=== PATIENT | female | born 1995 | race Caucasian/White ===

== ENCOUNTER 2017-01-11 17:16 | Emergency (ER) | payer MEDICAID ==
[2017-01-11] MEDS ORDERED: ACETAMINOPHEN 325 MG TABLET PO STA (17:50)
[2017-01-11] MEDS ORDERED: IBUPROFEN 400 MG TABLET PO STA (17:50)
[2017-01-11] MEDS ORDERED: IBUPROFEN 400 MG TABLET PO ONE (17:54)
[2017-01-11] MEDS ORDERED: ACETAMINOPHEN 325 MG TABLET PO ONE (17:54)
== END 2017-01-11 18:20 | disposition home or self-care (01) ==
DX: Z30.432 Encounter for removal of intrauterine contraceptive device (principal); F17.200 Nicotine dependence, unspecified, uncomplicated
CPT/HCPCS: 81001; 81025; 99282; 99283; A9270

== ENCOUNTER 2017-03-02 18:18 | Emergency (ER) | payer MEDICAID ==
[2017-03-02] MEDS ORDERED: LORazepam 0.5 MG TABLET PO STA (19:59)
[2017-03-02] MEDS ORDERED: LORazepam 0.5 MG TABLET ONE (20:02)
== END 2017-03-02 20:11 | disposition home or self-care (01) ==
DX: F34.81 Disruptive mood dysregulation disorder (principal); F33.2 Major depressive disorder, recurrent severe without psychotic features; F17.200 Nicotine dependence, unspecified, uncomplicated
CPT/HCPCS: 99283; A9270

== ENCOUNTER 2017-03-03 08:54 | Emergency (ER) | payer MEDICAID | END 2017-03-03 14:33 | disposition home or self-care (01) | DX: F41.9 Anxiety disorder, unspecified (principal); F32.9 Major depressive disorder, single episode, unspecified; F90.9 Attention-deficit hyperactivity disorder, unspecified type; F17.200 Nicotine dependence, unspecified, uncomplicated ==

== ENCOUNTER 2017-03-22 10:51 | Outpatient (CLI) | payer MEDICAID | END 2017-03-22 10:52 | disposition critical access hospital (66) | DX: R45.851 Suicidal ideations (principal) | CPT/HCPCS: A0425; A0429 ==

== ENCOUNTER 2017-03-22 11:07 | Emergency (ER) | payer MEDICAID | END 2017-03-22 13:42 | disposition home or self-care (01) | DX: F98.8 Other specified behavioral and emotional disorders with onset usually occurring in childhood and adolescence (principal); F32.9 Major depressive disorder, single episode, unspecified; R45.851 Suicidal ideations; F17.200 Nicotine dependence, unspecified, uncomplicated ==

== ENCOUNTER 2017-04-04 12:47 | Outpatient (CLI) | payer MEDICAID | END 2017-04-04 12:48 | disposition critical access hospital (66) | LOC: EMS 12:47 | PROVIDERS: ATTEND Surgery | DX: R45.851 Suicidal ideations (principal) | CPT/HCPCS: A0425; A0429 ==

== ENCOUNTER 2017-04-04 13:09 | Emergency (ER) | payer MEDICAID ==
[2017-04-04 13:45] LABS: BILIRUBIN,URINE NEGATIVE (NEGATIVE)
[2017-04-04 13:53] LABS: BASOPHILS % (AUTO) 0.3 %; EOSINOPHILS % (AUTO) 0.4 %; HGB - HEMOGLOBIN 13.9 g/dL (12.0-16.0); LYMPHOCYTES # (AUTO) 2.3 10^3/uL (1.5-3.5); LYMPHOCYTES % (AUTO) 19.6 %; MEAN CORPUSCULAR HEMOGLOBIN 30.4 pg (27.0-31.0); MEAN CORPUSCULAR HGB CONC 34.8 g/dL (32.0-36.0); MEAN CORPUSCULAR VOLUME 87.3 fL (81.0-99.0); MEAN PLATELET VOLUME 9.1 fL (7.9-10.8); MONOCYTES # (AUTO) 0.7 10^3/uL (0.0-1.0); MONOCYTES % (AUTO) 6.2 %; NEUTROPHILS # (AUTO) 8.5 10^3/uL (1.5-6.6); NEUTROPHILS % (AUTO) 73.5 %; RED BLOOD COUNT 4.58 10^6/uL (4.20-5.40); RED CELL DISTRIBUTION WIDTH 13.7 % (12.0-15.0); UNCORRECTED WHITE BLOOD COUNT 11.6 x10^3/uL; WHITE BLOOD COUNT 11.6 x10^3/uL (4.8-10.8)
[2017-04-04 13:54] LABS: HCG UR QUAL NEGATIVE; UA CHARGE (STRIP ONLY) YES; UR CULTURE IF IND NOT INDICATED
[2017-04-04 13:59] LABS: ALBUMIN/GLOBULIN RATIO 2.1 (1.0-2.2); BILIRUBIN,TOTAL 0.6 mg/dL (0.2-1.0); BUN - BLOOD UREA NITROGEN 6 mg/dL (6-20); CALCIUM 9.6 mg/dL (8.5-10.3); CARBON DIOXIDE - CO2 26 mmol/L (21-32); CHLORIDE 104 mmol/L (101-111); CREATININE 0.6 mg/dL (0.4-1.0); GFR - MDRD 124 (>89); GLUCOSE 95 mg/dL (70-100); LIPASE 14 U/L (22-51); SALICYLATE < 6.0 mg/dL; SODIUM 138 mmol/L (135-145); TOTAL PROTEIN 7.1 g/dL (6.7-8.2)
[2017-04-04 14:01] LABS: ACETAMINOPHEN < 10 ug/mL (10-30)
--- NOTE | 2017-04-04 14:42 | ED Physician Documentation ---
History of Present Illness - Stated complaint Stated Complaint: MHE - Chief complaint Chief Complaint: MHE - Additonal information Additional information: hx from pt 22 f hx ADD and depression many ER visits for depression SI seen by me earlier this month for similar - pt and her counselor felt that her sx stemmed from her under-treated ADD and so a trial of adderall was rxed- per pt it did not help much she was at her counselor today and having suicidal thoughts and so was sent to the ER again pt is frustrated because she believes she needs to be on meds for her depression and ADD but no local providers in network/accept her [place] insurance she has not tried to hurt herself at this time states she is afraid to do it states her plan would be to ingest acid pt has a 2 y/o child who is presently being taken care of by pts mother Review of Systems Constitutional: denies: Fever, Chills Cardiac: denies: Chest pain / pressure Respiratory: denies: Dyspnea GI: reports: Vomiting (pt atributes to her excessive caffeine intake - not new) . denies: Abdominal Pain, Nausea : denies: Dysuria, Now EGA Neurologic: denies: Generalized weakness Psychiatric: reports: Depressed, Suicidal Endocrine: denies: Easy bruising / bleeding Immunocompromised: denies: Immunocompromised PD PAST MEDICAL HISTORY - Past Medical History Past Medical History: Yes Cardiovascular: None Respiratory: None Neuro: None Endocrine/Autoimmune: None Psych: Depression, Anxiety, ADD/ADHD - Past Surgical History Past Surgical History: Yes General: Cholecystectomy - Present Medications Home Medications: Ambulatory Orders Medication Instructions Recorded Confirmed Ascorbic Acid [Vitamin C] 0 mg DAILY 03/22/17 03/22/17 Cyanocobalamin (Vitamin B-12) 0 mg DAILY 03/22/17 03/22/17 [Vitamin B-12] Dextroamphetamine/Amphetamine 5 mg PO DAILY #7 tablet 03/22/17 [Adderall 5 mg Tablet] Lisdexamfetamine Dimesylate 30 mg PO QDBREAKFAST #30 capsule 04/05/17 [Vyvanse] - Allergies Allergies/Adverse Reactions: Allergies Allergy/AdvReac Type Severity Reaction Status Date / Time No Known Drug Allergies Allergy Verified 04/04/17 13:19 - Social History Does the pt smoke?: Yes Smoking Status: Current every day smoker Does the pt drink ETOH?: Yes Does the pt have substance abuse?: Yes - Immunizations Immunizations are current?: No - POLST Patient has POLST: No PD ED PE NORMAL - Vitals Vital signs reviewed: Yes - Cardiac Cardiac: RRR - Respiratory Respiratory: No respiratory distress, Clear bilaterally - Abdomen Abdomen: Soft, Non tender - Derm Derm: Normal color - Neuro Neuro: Alert and oriented X 3, No motor deficit, No sensory deficit - Psych Psych: Other (depressed and suicidal thoughts, no apparent psychosis, irritable and tearful) Results - Vitals Vitals: Vital Signs - 24 hr 04/04/17 04/05/17 23:20 06:36 Heart Rate 64 54 L Respiratory 16 12 Rate Blood Pressure 123/64 97/55 L O2 Saturation 98 100 Oxygen O2 Source Room air - Labs Labs: Laboratory Tests 04/04/17 04/04/17 04/04/17 13:20 13:33 13:33 WBC 11.6 H RBC 4.58 Hgb 13.9 Hct 40.0 MCV 87.3 MCH 30.4 MCHC 34.8 RDW 13.7 Plt Count 202 MPV 9.1 Neut # 8.5 H Lymph # 2.3 [place] # 0.7 Eos # 0.0 Baso # 0.0 Absolute Nucleated RBC 0.00 Nucleated RBCs 0.0 Sodium 138 Potassium 4.0 Chloride 104 Carbon Dioxide 26 Anion Gap 8.0 BUN 6 Creatinine 0.6 Estimated GFR (MDRD) 124 Glucose 95 Calcium 9.6 Total Bilirubin 0.6 AST 17 ALT 16 Alkaline Phosphatase 66 Total Protein 7.1 Albumin 4.8 Globulin 2.3 Albumin/Globulin Ratio 2.1 Lipase 14 L TSH Urine Color YELLOW Urine Clarity CLEAR Urine pH 7.0 Ur Specific [place] <=1.005 Urine Protein NEGATIVE Urine Glucose (UA) NEGATIVE Urine Ketones NEGATIVE Urine Occult Blood NEGATIVE Urine Nitrite NEGATIVE Urine Bilirubin NEGATIVE Urine Urobilinogen 0.2 (NORMAL) Ur Leukocyte Esterase NEGATIVE Ur Microscopic Review NOT INDICATED Urine Culture Comments NOT INDICATED Urine HCG, Qual NEGATIVE Salicylates < 6.0 Urine Opiates Screen NEGATIVE Ur Oxycodone Screen NEGATIVE Urine Methadone Screen NEGATIVE Ur Propoxyphene Screen NEGATIVE Acetaminophen < 10 L Ur Barbiturates Screen NEGATIVE Ur Tricyclics Screen NEGATIVE Ur Phencyclidine Scrn NEGATIVE Ur Amphetamine Screen NEGATIVE U Methamphetamines Scrn NEGATIVE U Benzodiazepines Scrn NEGATIVE Urine Cocaine Screen NEGATIVE U Cannabinoids Screen NEGATIVE Ethyl Alcohol < 5.0 04/04/17 13:33 WBC RBC Hgb Hct MCV MCH MCHC RDW Plt Count MPV Neut # Lymph # [place] # Eos # Baso # Absolute Nucleated RBC Nucleated RBCs Sodium Potassium Chloride Carbon Dioxide Anion Gap BUN Creatinine Estimated GFR (MDRD) Glucose Calcium Total Bilirubin AST ALT Alkaline Phosphatase Total Protein Albumin Globulin Albumin/Globulin Ratio Lipase TSH 1.10 Urine Color Urine Clarity Urine pH Ur Specific [place] Urine Protein Urine Glucose (UA) Urine Ketones Urine Occult Blood Urine Nitrite Urine Bilirubin Urine Urobilinogen Ur Leukocyte Esterase Ur Microscopic Review Urine Culture Comments Urine HCG, Qual Salicylates Urine Opiates Screen Ur Oxycodone Screen Urine Methadone Screen Ur Propoxyphene Screen Acetaminophen Ur Barbiturates Screen Ur Tricyclics Screen Ur Phencyclidine Scrn Ur Amphetamine Screen U Methamphetamines Scrn U Benzodiazepines Scrn Urine Cocaine Screen U Cannabinoids Screen Ethyl Alcohol PD MEDICAL DECISION MAKING - ED course ED course: med amanda seen by JAN who feels pt will benefit from inpt care and will try and place pt for inpt care per JAN [facility] would like to accept pt but no beds till tomorrow [facility] may have a bed but awaiting call back pt boarding in the ER pending bed availability pt aware she will likely not get a MH bed until tomorrow she is voluntary and not detained and if she chooses to leave overnight before a bed can be found we have no grounds to hold her against her will (though I would rec sending police to her house for a welfare check) turned over to network security consultant Dr Mobley resumed care 7 AM 04/05 - pt still waiting for a voluntary MH bed I checked on her and she is resting comfortably no new complaints 9 AM JAN update - pt accepted at [facility] JAN working on [facility] approval despite ER JAN NEWMAN, pts private counselor and the accepting mental health facility believing pt would benefit from inpt mental health care, Dr Rachna Mata the psychiatrist at [facility] utilization denies her coverage for this admission - I spoke with Dr Mata to try and understand why this coverage was being denied and she states that the pt has chronic issues and that is why the coverage is denies - I explained that she is acutely worse, but Dr Mata still declines coverage - she states she is not denying the pt care but I stated that obviously she cannot get the care if the coverage is denied and so she is effectively being denied care - and that as the person making the determination to deny coverage/care Dr Mata will need to assume responsibility for the results of that decision I went to talk with pt - she was in the [place]mond hysterical and crying stating she has been waiting so long she feels abandoned - I tried to take her back to her room to explain the situation but she refused - so I had explained to her in the [place] that the [facility] psychiatrist was refusing to authorize coverage for the mental health admission - she started crying and ran out of the ER without her paperwork - will ask SW to call later and check on her (SW did not need to call to check on her and she checked back in again in short order) Departure - Departure Disposition: 01 Home, Self Care Clinical Impression: Suicidal ideation Condition: Fair Comments: Despite the fact that your ER doctor, the social media content manager, your private counselor and the accepting mental health facility all feel you would benefit from inpatient mental health care, Dr Rachna Mata the psychiatrist at [facility] utilization has denied you coverage for this admission. Please follow up with your counselor Return if worse Discharge Date/Time: 04/05/17 12:33
[2017-04-04] MEDS ORDERED: NICOTINE 7 MG PATCH TOP STA (17:52)
[2017-04-04] MEDS ORDERED: ONDANSETRON ODT 4 MG TABLET TL STA (21:55)
[2017-04-04] MEDS ORDERED: ACETAMINOPHEN 325 MG TABLET PO STA (21:55)
[2017-04-04] MEDS ORDERED: ACETAMINOPHEN 325 MG TABLET PO ONE (21:58)
[2017-04-04] MEDS ORDERED: ONDANSETRON ODT 4 MG TABLET ONE (21:58)
[2017-04-05 06:37] VITALS: BP 97/55
[2017-04-05] MEDS ORDERED: NICOTINE 7 MG PATCH TOP SCH (09:00)
== END 2017-04-05 12:33 | disposition home or self-care (01) ==
LOC: EDUNIT# → ED 13:09
DX: F32.9 Major depressive disorder, single episode, unspecified (principal); R45.851 Suicidal ideations; F90.9 Attention-deficit hyperactivity disorder, unspecified type; F17.200 Nicotine dependence, unspecified, uncomplicated
CPT/HCPCS: 36415; 80053; 80306; 80307; 80320; 80329; 81003; 81025; 83690; 84443; 85025; 99283; 99284; A9270; Q0162; 81001; 87086

== ENCOUNTER 2017-04-05 14:22 | Emergency (ER) | payer MEDICAID ==
--- NOTE | 2017-04-05 14:32 | ED Physician Documentation ---
PD HPI MHE - Stated complaint Stated Complaint: SI - History obtained from History obtained from: Patient - History of Present Illness Primary symptom: Suicidal ideation, Depression Timing - onset: Chronic (worse over the past month) Pain level max: 0 Pain level now: 0 Similar symptoms before: Diagnosis (depression) Recently seen: Emergency Dept (earlier today for same, walked out of ED approx 1 hour ago.) - Additional information Additional information: States has a history of ADHD that has been untreated. Now has depression, anxiety, claustrophobia and feeling suicidal. No specific plan, but is afraid that she won't be able to contract for safety. Has tried multiple SSRIs, Benzo' s without success. Has outpatient care at [facility]. No PCP and No psychiatrist at this time. Review of Systems Constitutional: denies: Fever, Chills Respiratory: denies: Cough : denies: Dysuria, Frequency, Hesitancy, Now EGA Skin: denies: Rash, Lesions Musculoskeletal: denies: Neck pain, Back pain Neurologic: denies: Focal weakness, Numbness, Confused, Altered mental status Psychiatric: reports: Depressed, Suicidal, Anxiety, Insomnia (states sleeps 3 hours per night) PD PAST MEDICAL HISTORY - Past Medical History Cardiovascular: None Respiratory: None Neuro: None Endocrine/Autoimmune: None Psych: Depression, Anxiety, ADD/ADHD - Past Surgical History Past Surgical History: Yes General: Cholecystectomy - Present Medications Home Medications: Ambulatory Orders Medication Instructions Recorded Confirmed Ascorbic Acid [Vitamin C] 0 mg DAILY 03/22/17 03/22/17 Cyanocobalamin (Vitamin B-12) 0 mg DAILY 03/22/17 03/22/17 [Vitamin B-12] Dextroamphetamine/Amphetamine 5 mg PO DAILY #7 tablet 03/22/17 [Adderall 5 mg Tablet] Lisdexamfetamine Dimesylate 30 mg PO QDBREAKFAST #30 capsule 04/05/17 [Vyvanse] - Allergies Allergies/Adverse Reactions: Allergies Allergy/AdvReac Type Severity Reaction Status Date / Time No Known Drug Allergies Allergy Verified 04/04/17 13:19 - Social History Does the pt smoke?: Yes Smoking Status: Current every day smoker Does the pt drink ETOH?: Yes Does the pt have substance abuse?: Yes - Immunizations Immunizations are current?: No - POLST Patient has POLST: No PD ED PE NORMAL - Vitals Vital signs reviewed: Yes - General General: Alert and oriented X 3, Well developed/nourished, Other (tearful, anxious) - HEENT HEENT: PERRL, Moist mucous membranes - Neck Neck: Supple, no meningeal sign - Cardiac Cardiac: RRR - Respiratory Respiratory: No respiratory distress, Clear bilaterally - Derm Derm: Warm and dry - Neuro Neuro: Alert and oriented X 3 - Psych Psych: Other (tearful, anxious) Results - Vitals Vitals: Vital Signs - 24 hr 04/05/17 04/05/17 14:30 19:37 Temperature 36.3 C L Heart Rate 77 100 Respiratory 18 18 Rate Blood Pressure 119/75 133/89 H O2 Saturation 98 100 Oxygen O2 Source Room air PD MEDICAL DECISION MAKING - ED course Complexity details: reviewed old records, reviewed results, re-evaluated patient , considered differential, d/w patient, d/w etl consultant ED course: Patient is a 22-year-old female who presents to the emergency department for appears to be multiple psychiatric complaints, acutely appears to have depression, vague suicidal ideation, anxiety. She relates this to untreated ADD. She states that she has tried multiple SSRIs without relief. Has been on benzodiazepines as well. No relief with that either. She did not feel any better on Adderall prescribed last week. We will trial her on Vyvanse. At her previous emergency department visit today, she was initially accepted for inpatient therapy which I think would have been useful to her to allow her to be titrated on medications and monitor her response in a controlled setting. [facility] however declined to pay for this treatment, therefore she could not be accepted. We were able to find a crisis respite bed for her and I will start her on the Vyvanse and see if this improves her. Patient is able to contract for safety here.Patient will be sent to [place] crisis respite. Patient counseled regarding signs and symptoms for which I believe and urgent re- evaluation would be necessary. Patient with good understanding of and agreement to plan and is comfortable going home at this time This document was made in part using voice recognition software. While efforts are made to proofread this document, sound alike and grammatical errors may occur. Patient sent by taxi Departure - Departure Disposition: 01 Home, Self Care Clinical Impression: ADD (attention deficit disorder), Suicidal ideation Depression Qualifiers: Depression Type: unspecified Qualified Code(s): F32.9 - Major depressive disorder, single episode, unspecified Condition: Stable Instructions: ED Depression Prescriptions: Lisdexamfetamine Dimesylate [Vyvanse] 30 mg PO QDBREAKFAST #30 capsule Comments: You are to go to [place] respite tonight. Return if you worsen. The vyvanse may help you as well. Your blood pressure was elevated today on check in to the emergency department. This does not mean that you have hypertension, it is a common phenomenon to check into the emergency department and have elevated blood pressure. I recommend that you see your primary care physician within the week to have it rechecked when you're feeling better. Discharge Date/Time: 04/05/17 20:59
[2017-04-05 19:37] VITALS: BP 133/89
== END 2017-04-05 20:59 | disposition home or self-care (01) ==
LOC: ED 14:22
DX: F32.9 Major depressive disorder, single episode, unspecified (principal); F41.9 Anxiety disorder, unspecified; R45.851 Suicidal ideations; F90.9 Attention-deficit hyperactivity disorder, unspecified type; F17.200 Nicotine dependence, unspecified, uncomplicated; R03.0 Elevated blood-pressure reading, without diagnosis of hypertension
CPT/HCPCS: 99283; 99284

== ENCOUNTER 2017-04-10 18:18 | Outpatient (CLI) | payer MEDICAID | END 2017-04-10 18:19 | disposition critical access hospital (66) | LOC: EMS 18:18 | PROVIDERS: ATTEND Surgery | DX: R06.00 Dyspnea, unspecified (principal); R13.10 Dysphagia, unspecified | CPT/HCPCS: A0425; A0429 ==

== ENCOUNTER 2017-04-10 18:32 | Emergency (ER) | payer MEDICAID ==
[2017-04-10] MEDS ORDERED: diphenhydrAMINE 25 MG CAPSULE PO STA (19:00)
[2017-04-10] MEDS ORDERED: diphenhydrAMINE 25 MG CAPSULE PO ONE (19:06)
== END 2017-04-10 19:38 | disposition home or self-care (01) ==
DX: F41.9 Anxiety disorder, unspecified (principal); T78.40XA Allergy, unspecified, initial encounter; F17.200 Nicotine dependence, unspecified, uncomplicated
CPT/HCPCS: 93005; 93010; 99283; A9270

== ENCOUNTER 2017-05-17 14:57 | Outpatient (CLI) | payer MEDICAID | END 2017-05-17 14:58 | disposition home or self-care (01) | LOC: LAB.N 14:57 | PROVIDERS: ATTEND Physician Assistant | DX: N91.2 Amenorrhea, unspecified (principal) | CPT/HCPCS: 36415; 84702 ==

== ENCOUNTER 2017-07-20 15:47 | Emergency (ER) | payer MEDICAID ==
[2017-07-20 16:31] LABS: RAPID STREP SCREEN REAGENT QC YELLOW (YELLOW)
--- NOTE | 2017-07-20 18:12 | ED Physician Documentation ---
PD HPI URI - Stated complaint Stated Complaint: SORE THROAT /BODY PX - Chief complaint Chief Complaint: General - History obtained from History obtained from: Patient - History of Present Illness Timing - onset: Today Timing duration: Days (1) Timing details: Abrupt onset, Still present Associated symptoms: Fever, Sore throat, Swollen nodes, NVD, Other (crampy abd pain, diffuse myalgias). No: Dry cough, Productive cough Contributing factors: No: Sick contact, Travel, Immunocompromised Worsened by: Activity, Other (throat pain with swallowing.) Similar symptoms before: Has not had sx before Recently seen: Not recently seen Review of Systems Constitutional: reports: Fever, Chills, Myalgias, Fatigue Nose: denies: Rhinorrhea / runny nose, Congestion Throat: reports: Sore throat Cardiac: denies: Chest pain / pressure, Palpitations Respiratory: denies: Cough GI: reports: Abdominal Pain, Nausea, Vomiting. denies: Abdominal Swelling, Constipation, Diarrhea : denies: Dysuria, Frequency Skin: denies: Rash, Lesions Musculoskeletal: reports: Extremity pain (diffusely). denies: Extremity swelling Neurologic: reports: Generalized weakness. denies: Focal weakness, Numbness, Near syncope PD PAST MEDICAL HISTORY - Past Medical History Cardiovascular: None Respiratory: None Neuro: None Endocrine/Autoimmune: None Psych: Depression, Anxiety, ADD/ADHD - Past Surgical History Past Surgical History: Yes General: Cholecystectomy - Present Medications Home Medications: Ambulatory Orders Medication Instructions Recorded Confirmed Dextroamphetamine/Amphetamine 5 mg PO DAILY #7 tablet 03/22/17 07/20/17 [Adderall 5 mg Tablet] Lisdexamfetamine Dimesylate 30 mg PO QDBREAKFAST #30 capsule 04/05/17 07/20/17 [Vyvanse] Cephalexin [Keflex] 500 mg PO QID #28 capsule 07/20/17 HYDROcod/ACETAM 5/325 [[place] 5/325] 1 tab PO Q6H PRN #15 tablet 07/20/17 Ondansetron HCl [Zofran] 4 mg PO Q6H PRN #20 tablet 07/20/17 - Allergies Allergies/Adverse Reactions: Allergies Allergy/AdvReac Type Severity Reaction Status Date / Time No Known Drug Allergies Allergy Verified 07/20/17 19:33 - Social History Does the pt smoke?: Yes Smoking Status: Current every day smoker Does the pt drink ETOH?: Yes Does the pt have substance abuse?: Yes - Immunizations Immunizations are current?: No - POLST Patient has POLST: No PD ED PE NORMAL - Vitals Vital signs reviewed: Yes - General General: Alert and oriented X 3, Well developed/nourished, Other (tearful and drying, complains of pain diffusely in muscles, stomach, throat, neck in particular. ) - HEENT HEENT: Ears normal. No: Moist mucous membranes, Pharynx benign (enlarged tonsils with marked exudates on both sides. Anterior adenopathy which is tender. ) - Neck Neck: Supple, no meningeal sign - Cardiac Cardiac: No murmur, No rub. No: RRR (regular but tachycardic. ) - Respiratory Respiratory: Clear bilaterally - Abdomen Abdomen: Normal bowel sounds, Soft, Non distended, No organomegaly, Other ( tender diffusely with some guarding. No distension. ) - Female Female : Deferred - Rectal Rectal: Deferred - Back Back: No CVA TTP - Derm Derm: Normal color, Warm and dry, No rash - Extremities Extremities: Normal ROM s pain, Other (diffuse tenderness of muscles, without rash, swelling. ) - Neuro Neuro: Alert and oriented X 3, No motor deficit, Normal speech Results - Vitals Vitals: Vital Signs - 24 hr 07/20/17 07/20/17 07/20/17 15:54 18:09 18:19 Temperature 36.7 C 37.4 C 37.5 C Heart Rate 125 H 116 H 120 H Respiratory 17 22 18 Rate Blood Pressure 126/66 108/71 124/86 H O2 Saturation 100 100 100 07/20/17 07/20/17 07/20/17 19:24 19:46 20:15 Temperature 37.4 C Heart Rate 104 H 95 81 Respiratory 20 18 16 Rate Blood Pressure 153/78 H 111/66 108/51 L O2 Saturation 100 98 98 07/20/17 07/20/17 21:04 22:03 Temperature 36.5 C 36.5 C Heart Rate 85 89 Respiratory 18 18 Rate Blood Pressure 93/59 L 96/60 O2 Saturation 98 100 Oxygen O2 Source Room air - Labs Labs: Laboratory Tests 07/20/17 07/20/17 07/20/17 15:55 18:30 18:55 WBC 23.2 H RBC 4.50 Hgb 13.5 Hct 39.4 MCV 87.6 MCH 29.9 MCHC 34.2 RDW 13.2 Plt Count 194 MPV 8.5 Neut # 19.2 H Lymph # 1.9 [place] # 2.1 H Eos # 0.0 Baso # 0.1 Absolute Nucleated RBC 0.00 Nucleated RBCs 0.0 Manual Slide Review Indicated Platelet Estimate NORMAL (130-450,000) Platelet Morphology NORMAL APPEARANCE RBC Morph Micro Appear NORMAL APPEARANCE Sodium Potassium Chloride Carbon Dioxide Anion Gap BUN Creatinine Estimated GFR (MDRD) Glucose Calcium Total Bilirubin AST ALT Alkaline Phosphatase C-Reactive Protein Total Protein Albumin Globulin Albumin/Globulin Ratio Lipase Urine Color YELLOW Urine Clarity CLEAR Urine pH 7.5 Ur Specific [place] 1.010 Urine Protein NEGATIVE Urine Glucose (UA) NEGATIVE Urine Ketones NEGATIVE Urine Occult Blood TRACE-INTA Urine Nitrite NEGATIVE Urine Bilirubin NEGATIVE Urine Urobilinogen 1 (NORMAL) Ur Leukocyte Esterase NEGATIVE Ur Microscopic Review NOT INDICATED Urine Culture Comments NOT INDICATED Group A Strep Rapid Negative 07/20/17 18:55 WBC RBC Hgb Hct MCV MCH MCHC RDW Plt Count MPV Neut # Lymph # [place] # Eos # Baso # Absolute Nucleated RBC Nucleated RBCs Manual Slide Review Platelet Estimate Platelet Morphology RBC Morph Micro Appear Sodium 133 L Potassium 3.3 L Chloride 99 L Carbon Dioxide 25 Anion Gap 9.0 BUN < 5 L Creatinine 0.6 Estimated GFR (MDRD) 124 Glucose 107 H Calcium 9.4 Total Bilirubin 0.7 AST 54 H ALT 98 H Alkaline Phosphatase 71 C-Reactive Protein 14.4 H Total Protein 7.6 Albumin 4.3 Globulin 3.3 Albumin/Globulin Ratio 1.3 Lipase 21 L Urine Color Urine Clarity Urine pH Ur Specific [place] Urine Protein Urine Glucose (UA) Urine Ketones Urine Occult Blood Urine Nitrite Urine Bilirubin Urine Urobilinogen Ur Leukocyte Esterase Ur Microscopic Review Urine Culture Comments Group A Strep Rapid PD MEDICAL DECISION MAKING - ED course Complexity details: reviewed results, considered differential (She seemed somewhat dramatic initially with crying and feeling pain "everywhere" but labs suggest significant infection. She is much improved with IV fluids and some medications. Then able to recheck and not having abd tenderness (though some crampy pain still) and has main finding now at the throat with exudative tonsils. With 4/4 Cent[place] and such significant symptoms, I feel that I would empirically treat for bacterial even though rapid strep is negative. ), d/w patient Departure - Departure Disposition: 01 Home, Self Care Clinical Impression: Generalized muscle ache, Exudative tonsillitis Condition: Stable Record reviewed to determine appropriate education?: Yes Instructions: ED Tonsillitis Follow-Up: Angelito Pina PA-C [Primary Care Provider] - Prescriptions: Cephalexin [Keflex] 500 mg PO QID #28 capsule HYDROcod/ACETAM 5/325 [[place] 5/325] 1 tab PO Q6H PRN #15 tablet PRN Reason: Pain Ondansetron HCl [Zofran] 4 mg PO Q6H PRN #20 tablet PRN Reason: Nausea / Vomiting Comments: Drink lots of fluids. Cephalexin for the apparent tonsil infection. Ondansetron if needed for nausea. Use hydrocodone if needed for pain. Recheck if not improved over the next few days. Discharge Date/Time: 07/20/17 22:12
[2017-07-20] MEDS ORDERED: KETOROLAC 60 MG/2 ML VIAL IVP STA (18:26)
[2017-07-20] MEDS ORDERED: HYDROmorphone 1 MG/ML SYRINGE IVP STA ×2 (18:26→20:12)
[2017-07-20] MEDS ORDERED: ONDANSETRON 4 MG/2 ML VIAL IVP STA (18:26)
[2017-07-20] MEDS ORDERED: SODIUM CHLORIDE 0.9% 1,000 ML IV ONE (18:27)
[2017-07-20 18:45] LABS: BILIRUBIN,URINE NEGATIVE (NEGATIVE); PH,URINE 7.5 PH (5.0-7.5)
[2017-07-20 18:47] LABS: UA CHARGE (STRIP ONLY) YES; UR CULTURE IF IND NOT INDICATED
[2017-07-20 19:07] LABS: BASOPHILS # (AUTO) 0.1 10^3/uL (0.0-0.1); BASOPHILS % (AUTO) 0.3 %; EOSINOPHILS % (AUTO) 0.1 %; HCT - HEMATOCRIT 39.4 % (37.0-47.0); HGB - HEMOGLOBIN 13.5 g/dL (12.0-16.0); LYMPHOCYTES # (AUTO) 1.9 10^3/uL (1.5-3.5); MEAN CORPUSCULAR HEMOGLOBIN 29.9 pg (27.0-31.0); MEAN CORPUSCULAR HGB CONC 34.2 g/dL (32.0-36.0); MEAN CORPUSCULAR VOLUME 87.6 fL (81.0-99.0); MEAN PLATELET VOLUME 8.5 fL (7.9-10.8); MONOCYTES # (AUTO) 2.1 10^3/uL (0.0-1.0); NEUTROPHILS # (AUTO) 19.2 10^3/uL (1.5-6.6); NEUTROPHILS % (AUTO) 82.6 %; RED CELL DISTRIBUTION WIDTH 13.2 % (12.0-15.0); UNCORRECTED WHITE BLOOD COUNT 23.2 x10^3/uL; WHITE BLOOD COUNT 23.2 x10^3/uL (4.8-10.8)
[2017-07-20] MEDS ORDERED: ONDANSETRON 4 MG/2 ML VIAL ONE (19:21)
[2017-07-20] MEDS ORDERED: HYDROmorphone 1 MG/ML SYRINGE ONE ×2 (19:21→20:22)
[2017-07-20] MEDS ORDERED: KETOROLAC 30 MG/ML VIAL ONE (19:21)
[2017-07-20 19:24] LABS: ALBUMIN/GLOBULIN RATIO 1.3 (1.0-2.2); BILIRUBIN,TOTAL 0.7 mg/dL (0.2-1.0); BUN - BLOOD UREA NITROGEN < 5 mg/dL (6-20); CALCIUM 9.4 mg/dL (8.5-10.3); CARBON DIOXIDE - CO2 25 mmol/L (21-32); CHLORIDE 99 mmol/L (101-111); CREATININE 0.6 mg/dL (0.4-1.0); GFR - MDRD 124 (>89); GLUCOSE 107 mg/dL (70-100); LIPASE 21 U/L (22-51); POTASSIUM 3.3 mmol/L (3.5-5.0); SODIUM 133 mmol/L (135-145); TOTAL PROTEIN 7.6 g/dL (6.7-8.2)
[2017-07-20 19:28] LABS: PLATELET ESTIMATE, MANUAL NORMAL (130-450,000) (NORMAL); PLATELET MORPHOLOGY NORMAL APPEARANCE (NORMAL)
[2017-07-20] MEDS ORDERED: cefTRIAXone 1 GM in SODIUM CHLORIDE 0.9% MINIBAG 100 ML IV STA (20:12)
[2017-07-20] MEDS ORDERED: cefTRIAXone 1 GM VIAL ONE (20:23)
[2017-07-20] MEDS ORDERED: ONDANSETRON ODT 4 MG Prepack 2 TL PRN (21:32)
[2017-07-20] MEDS ORDERED: HYDROcod/ACET 5/325 Prepack 6 PO ONE ×2 (21:32→21:59)
[2017-07-20] MEDS ORDERED: ONDANSETRON ODT 4 MG Prepack 2 TL ONE (21:58)
[2017-07-20 22:04] VITALS: BP 96/60
== END 2017-07-20 22:12 | disposition home or self-care (01) ==
LOC: ED 15:47
DX: J03.90 Acute tonsillitis, unspecified (principal); M79.1 Myalgia; F17.200 Nicotine dependence, unspecified, uncomplicated
CPT/HCPCS: 36415; 80053; 81003; 83690; 85025; 86140; 87070; 87430; 96365; 96375; 96376; 99284; J1170; 81001; 87086

== ENCOUNTER 2017-10-29 23:05 | Emergency (ER) | payer MEDICAID ==
[2017-10-29 23:09] VITALS: BP 118/69
[2017-10-29] MEDS ORDERED: ACETAMINOPHEN 500 MG TABLET PO STA (23:29)
[2017-10-29 23:32] LABS: BILIRUBIN,URINE NEGATIVE (NEGATIVE)
[2017-10-29 23:41] LABS: UA CHARGE (STRIP ONLY) YES; UR CULTURE IF IND NOT INDICATED
[2017-10-29] MEDS ORDERED: ACETAMINOPHEN 500 MG TABLET PO ONE (23:41)
--- NOTE | 2017-10-29 23:51 | ED Physician Documentation ---
PD HPI FEMALE - Stated complaint Stated Complaint: 11W ,PAIN - Chief complaint Chief Complaint: Abd Pain - History obtained from History obtained from: Patient, Family - History of Present Illness Timing - onset: Yesterday Timing - details: Gradual onset, Still present Associated symptoms: Pelvic pain. 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 Patient states that it started today and got progressively worse. Patient states that she did not have any pain like this in previous pregnancies. patient denies nausea, vomiting, fevers, chills vaginal bleeding or vaginal discharge. patient did have a normal ob ultrasound confirming location of . Review of Systems Constitutional: denies: Fever, Chills Eyes: reports: Reviewed and negative Ears: reports: Reviewed and negative Nose: reports: Reviewed and negative Throat: reports: Reviewed and negative Cardiac: denies: Chest pain / pressure Respiratory: reports: Reviewed and negative GI: reports: Abdominal Pain. 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 : None HEENT: None Psych: Depression, Anxiety, ADD/ADHD Musculoskeletal: None Derm: None - Past Surgical History Past Surgical History: Yes General: Cholecystectomy - Present Medications Home Medications: Ambulatory Orders Medication Instructions Recorded Confirmed Dextroamphetamine/Amphetamine 5 mg PO DAILY #7 tablet 03/22/17 07/20/17 [Adderall 5 mg Tablet] Lisdexamfetamine Dimesylate 30 mg PO QDBREAKFAST #30 capsule 04/05/17 07/20/17 [Vyvanse] Cephalexin [Keflex] 500 mg PO QID #28 capsule 07/20/17 HYDROcod/ACETAM 5/325 [[place] 5/325] 1 tab PO Q6H PRN #15 tablet 07/20/17 Ondansetron HCl [Zofran] 4 mg PO Q6H PRN #20 tablet 07/20/17 - Allergies Allergies/Adverse Reactions: Allergies Allergy/AdvReac Type Severity Reaction Status Date / Time No Known Drug Allergies Allergy Verified 07/20/17 19:33 - Social History Does the pt smoke?: Yes Smoking Status: Current every day smoker Does the pt drink ETOH?: No Does the pt have substance abuse?: No - Immunizations Immunizations are current?: No - POLST Patient has POLST: No PD ED PE NORMAL - Vitals Vital signs reviewed: Yes - General General: Alert and oriented X 3, No acute distress, Well developed/nourished - HEENT HEENT: Atraumatic, PERRL, Moist mucous membranes - Neck Neck: Supple, no meningeal sign - Cardiac Cardiac: RRR, No murmur - Respiratory Respiratory: No respiratory distress - Abdomen Abdomen: Soft, Non tender, Non distended - Female Female : Deferred - Derm Derm: Normal color, Warm and dry, No rash - Extremities Extremities: No deformity, Normal ROM s pain, No edema, No calf tenderness / cord - Neuro Neuro: Alert and oriented X 3, No motor deficit, Normal speech - Psych Psych: Normal mood Results - Vitals Vitals: Vital Signs - 24 hr 10/29/17 23:07 Temperature 36.3 C L Heart Rate 74 Respiratory 14 Rate Blood Pressure 118/69 O2 Saturation 99 Oxygen O2 Source Room air - Labs Labs: Laboratory Tests 10/29/17 23:20 Urine Color LT. YELLOW Urine Clarity CLEAR Urine pH 6.0 Ur Specific [place] >=1.030 H Urine Protein NEGATIVE Urine Glucose (UA) NEGATIVE Urine Ketones NEGATIVE Urine Occult Blood NEGATIVE Urine Nitrite NEGATIVE Urine Bilirubin NEGATIVE Urine Urobilinogen 0.2 (NORMAL) Ur Leukocyte Esterase NEGATIVE Ur Microscopic Review NOT INDICATED Urine Culture Comments NOT INDICATED Procedures - Bedside sono Bedside sono by EMP: pelvic ultrasound, viable iup with fhr of 146 PD MEDICAL DECISION MAKING - ED course Complexity details: reviewed old records, reviewed results, re-evaluated patient , considered differential, d/w patient, d/w family ED course: Patient was seen and examined at bedside. Urine was collected and patient was treated with tylenol. Bedside ultrasound was performed and showed a viable IUP with a fhr of 146. Patient was well appearing with a soft abdomen. Patient required no further work up at this time and was stable for discharge with outpatient follow up. Departure - Departure Disposition: 01 Home, Self Care Clinical Impression: Abdominal pain affecting Condition: Good Instructions: ED Abdominal Pain Rule Out Ectopic Follow-Up: primary,ob [Other] - Tomorrow Comments: Your diagnostics today were within normal limits. there was no sign of infection and the fetus appeared normal. The symptoms are likely secondary to the . You can take tylenol as needed for pain. You should call your ob tomorrow to schedule a follow up appointment. you should return to the emergency department for vaginal bleeding, vaginal discharge, new worsening or uncontrollable symptoms.
== END 2017-10-30 00:09 | disposition home or self-care (01) ==
LOC: ED 23:05
DX: O26.891 Other specified pregnancy related conditions, first trimester (principal); R10.2 Pelvic and perineal pain; O99.331 Smoking (tobacco) complicating pregnancy, first trimester; Z3A.11 11 weeks gestation of pregnancy
CPT/HCPCS: 81003; 99283; A9270; 81001; 87086

== ENCOUNTER 2017-11-19 01:26 | Emergency (ER) | payer MEDICAID ==
[2017-11-19] MEDS ORDERED: SODIUM CHLORIDE 0.9% 1,000 ML IV ONE (01:37)
[2017-11-19] MEDS ORDERED: ONDANSETRON 4 MG/2 ML VIAL IVP STA (01:37)
[2017-11-19 02:23] LABS: BILIRUBIN,URINE NEGATIVE (NEGATIVE); GLUCOSE, URINE (UA) NEGATIVE (NEGATIVE); KETONES,URINE (UA) NEGATIVE (NEGATIVE); LEUKOCYTE ESTERASE, URINE NEGATIVE (NEGATIVE); NITRITE,URINE NEGATIVE (NEGATIVE); OCCULT BLOOD,URINE NEGATIVE (NEGATIVE); PH,URINE 6.5 PH (5.0-7.5); PROTEIN,URINE NEGATIVE (NEGATIVE); UROBILINOGEN,URINE 2 E.U./dL (NORMAL)
[2017-11-19 02:26] LABS: CLARITY,URINE CLEAR (CLEAR); HCG UR QUAL POSITIVE
[2017-11-19] MEDS ORDERED: MORPHINE 10 MG/ML VIAL IVP STA (02:39)
--- NOTE | 2017-11-19 03:27 | ED Physician Documentation ---
History of Present Illness - Stated complaint Stated Complaint: VOMITING - Chief complaint Chief Complaint: Abd Pain - History obtained from History obtained from: Patient, Family - History of Present Illness Timing: Today - Additonal information Additional information: Patient is a 22 year old female, approximately 13 weeks by dates who is presenting to the emergency department for body aches and vomiting. patient states that she always has pain, and she normally tries to control it but sometime it gets out of control. Patient states that she had the severe pain and vomiting. Patient denied any pelvic or abdominal pain. Patient also denied any vaginal bleeding or vaginal discharge. Review of Systems Constitutional: denies: Fever, Chills Eyes: reports: Reviewed and negative Ears: reports: Reviewed and negative Nose: reports: Reviewed and negative Throat: reports: Reviewed and negative Cardiac: denies: Chest pain / pressure, Palpitations Respiratory: denies: Dyspnea, Cough, Wheezing GI: reports: Nausea, Vomiting. 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 : None HEENT: None Psych: Depression, Anxiety, ADD/ADHD Musculoskeletal: None Derm: None - Past Surgical History Past Surgical History: Yes General: Cholecystectomy - Present Medications Home Medications: Ambulatory Orders Medication Instructions Recorded Confirmed Ondansetron HCl [Zofran] 4 mg PO Q6H PRN #20 tablet 07/20/17 11/19/17 - Allergies Allergies/Adverse Reactions: Allergies Allergy/AdvReac Type Severity Reaction Status Date / Time No Known Drug Allergies Allergy Verified 11/19/17 01:36 - Social History Does the pt smoke?: Yes Smoking Status: Current every day smoker Does the pt drink ETOH?: No Does the pt have substance abuse?: No - Immunizations Immunizations are current?: No - POLST Patient has POLST: No PD ED PE NORMAL - Vitals Vital signs reviewed: Yes - General General: Alert and oriented X 3, Well developed/nourished - HEENT HEENT: Atraumatic, PERRL - Neck Neck: Supple, no meningeal sign, No JVD - Cardiac Cardiac: RRR, No murmur - Respiratory Respiratory: No respiratory distress, Clear bilaterally - Abdomen Abdomen: Soft, Non tender, Non distended - Derm Derm: Normal color, Warm and dry, No rash - Extremities Extremities: No deformity, No edema - Neuro Neuro: Alert and oriented X 3, No motor deficit, No sensory deficit, Normal speech PD ED PE EXPANDED - General General: Alert, In Pain - HEENT HEENT: Dry mucous membranes Results - Vitals Vitals: Vital Signs - 24 hr 11/19/17 11/19/17 11/19/17 01:31 02:38 03:01 Temperature 37.7 C H Heart Rate 105 H 126 H 90 Respiratory 18 24 18 Rate Blood Pressure 117/74 143/84 H 106/67 O2 Saturation 98 99 99 Oxygen O2 Source Room air - Labs Labs: Laboratory Tests 11/19/17 11/19/17 02:17 02:17 Urine Color YELLOW Urine Clarity CLEAR Urine pH 6.5 Ur Specific [place] 1.010 Urine Protein NEGATIVE Urine Glucose (UA) NEGATIVE Urine Ketones NEGATIVE Urine Occult Blood NEGATIVE Urine Nitrite NEGATIVE Urine Bilirubin NEGATIVE Urine Urobilinogen 2 H Ur Leukocyte Esterase NEGATIVE Ur Microscopic Review NOT INDICATED Urine Culture Comments NOT INDICATED Urine HCG, Qual POSITIVE Influenza A (Rapid) Negative Influenza B (Rapid) Negative Influenza Types A,B Ag - Procedures - Bedside sono Bedside sono by EMP: bedside ultrasound showed a viable IUP with normal movement and FHR PD MEDICAL DECISION MAKING - ED course Complexity details: reviewed old records, reviewed results, re-evaluated patient , considered differential, d/w patient, d/w family ED course: Patient was seen and examined at bedside. IV access was gained and urine was collected. patient was treated with zofran and fluid bolus. patient was crying in pain and had already taken tylenol. The risks/benefits of opiates was discussed with the patient who stated she understood. Patient was treated with 4mg of morphine and responded well. Bedside ultrasound was performed and the fetus was well appearing. patient required no further inpatient work up at this time and was stable for discharge with outpatient follow up. Departure - Departure Disposition: 01 Home, Self Care Clinical Impression: Vomiting Condition: Good Instructions: ED Preg Morning Sickness Follow-Up: primary, care provider [Other] - Within 3 Days Comments: Your diagnostics today were within normal limits. the fetus is well appearing and there is no sign of infection. You should stay well hydrated and take zofran for nausea and tylenol for pain. if this becomes more recurrent you should follow up with your OB for further evaluation and care. You may return to the emergency department at any time for new, worsening or uncontrollable symptoms.
[2017-11-19 03:41] VITALS: BP 104/60
== END 2017-11-19 03:41 | disposition home or self-care (01) ==
LOC: ED 01:26
DX: O21.0 Mild hyperemesis gravidarum (principal); O99.331 Smoking (tobacco) complicating pregnancy, first trimester; Z3A.13 13 weeks gestation of pregnancy
CPT/HCPCS: 81001; 81003; 81025; 87086; 87275; 87276; 96361; 96374; 96375; 99283; 99284

== ENCOUNTER 2018-03-01 19:40 | Outpatient (CLI) | payer MEDICAID ==
[2018-03-01 20:17] LABS: BILIRUBIN,URINE NEGATIVE (NEGATIVE); GLUCOSE, URINE (UA) NEGATIVE (NEGATIVE); KETONES,URINE (UA) NEGATIVE (NEGATIVE); LEUKOCYTE ESTERASE, URINE NEGATIVE (NEGATIVE); NITRITE,URINE NEGATIVE (NEGATIVE); OCCULT BLOOD,URINE NEGATIVE (NEGATIVE); PH,URINE 7.5 PH (5.0-7.5); PROTEIN,URINE NEGATIVE (NEGATIVE); UROBILINOGEN,URINE 0.2 (NORMAL) E.U./dL (NORMAL)
[2018-03-01 20:18] LABS: CLARITY,URINE CLEAR (CLEAR)
[2018-03-01 20:37] VITALS: BP 120/73
--- NOTE | 2018-03-07 16:02 | PROVIDER PROGRESS NOTE ---
Subjective - Prog Note Date Prog Note Date: 03/01/18 Prog Note Time: 21:00 - Subjective Pt reports feeling: Improved, No change Subjective: Carol is a 23-year-old 1 para 1001 at 28 weeks 5 days EGA who comes tonight for nausea and URI symptoms. She normally gets her obstetric care at [facility]. She has no fevers chills. Physical examination finds no uterine contractions or abdominal pain. External strip is category 1 with no contractions, baseline 140-145 and no worrisome to cells. Urinalysis was sent which was unremarkable. Patient was discharged home and instructed to follow-up with her usual floor sweeper as scheduled
== END 2018-03-01 22:34 | disposition home or self-care (01) ==
LOC: WFO 19:40 → FBP 19:42 → WFO 22:34
PROVIDERS: ATTEND Obstetrics & Gynecology
DX: R11.0 Nausea (principal); R09.89 Other specified symptoms and signs involving the circulatory and respiratory systems
CPT/HCPCS: 81001; 81003; 87086; 99212

== ENCOUNTER 2018-03-12 22:18 | Emergency (ER) | payer MEDICAID ==
--- NOTE | 2018-03-12 22:33 | ED Physician Documentation ---
PD HPI NVD - Stated complaint Stated Complaint: VOMITING/30WK OB - History obtained from History obtained from: Patient - History of Present Illness Timing - onset: Last night Timing - details: Abrupt onset Associated symptoms: No: Fever (has been checking temperature at home), Abdominal pain Improved by: Other (no ameliorating factors) Worsened by: Eating (not tolerating PO) Recently seen: Not recently seen - Additonal information Additional information: patient is 30 weeks , c/o nausea and vomiting since last night, unable to tolerate any PO. Denies diarrhea. Review of Systems Constitutional: denies: Fever, Chills, Sweats Cardiac: reports: Reviewed and negative Respiratory: reports: Reviewed and negative GI: reports: Nausea, Vomiting. denies: Abdominal Pain, Constipation, Diarrhea : reports: Now EGA (30 weeks). 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 : None HEENT: None Psych: Depression, Anxiety, ADD/ADHD Musculoskeletal: None Derm: None - Past Surgical History Past Surgical History: Yes General: Cholecystectomy - Present Medications Home Medications: Ambulatory Orders Medication Instructions Recorded Confirmed Ondansetron HCl [Zofran] 4 mg PO Q6H PRN #20 tablet 07/20/17 11/19/17 Ondansetron Odt [Zofran] 4 mg TL Q6H PRN #10 tablet 03/12/18 - Allergies Allergies/Adverse Reactions: Allergies Allergy/AdvReac Type Severity Reaction Status Date / Time No Known Drug Allergies Allergy Verified 03/12/18 22:37 - Social History Does the pt smoke?: Yes Smoking Status: Current every day smoker Does the pt drink ETOH?: No Does the pt have substance abuse?: No - Immunizations Immunizations are current?: No - POLST Patient has POLST: No PD ED PE NORMAL - Vitals Vital signs reviewed: Yes - General General: Alert and oriented X 3, No acute distress, Well developed/nourished - HEENT HEENT: Other (dry mucous membranes) - Neck Neck: Supple, no meningeal sign - Cardiac Cardiac: No murmur - Respiratory Respiratory: No respiratory distress, Clear bilaterally - Abdomen Abdomen: Soft, Non tender, Other - Back Back: No CVA TTP - Derm Derm: Normal color, Warm and dry PD ED PE EXPANDED - Cardiac Cardiac: Tachy, Regular Rhythm Results - Vitals Vitals: Vital Signs - 24 hr 03/12/18 03/13/18 22:26 00:02 Temperature 36.6 C Heart Rate 122 H 104 H Respiratory 17 17 Rate Blood Pressure 123/71 103/69 O2 Saturation 100 100 Oxygen O2 Source Room air - Labs Labs: Laboratory Tests 03/12/18 03/12/18 22:30 22:30 WBC 12.8 H RBC 4.20 Hgb 12.0 Hct 35.9 L MCV 85.5 MCH 28.6 MCHC 33.5 RDW 13.4 Plt Count 237 MPV 8.5 Neut # 11.3 H Lymph # 0.6 L [place] # 0.8 Eos # 0.0 Baso # 0.0 Absolute Nucleated RBC 0.00 Nucleated RBC % 0.0 Sodium 130 L Potassium 3.6 Chloride 100 L Carbon Dioxide 22 Anion Gap 8.0 BUN 7 Creatinine 0.4 Estimated GFR (MDRD) 196 Glucose 106 H Calcium 8.3 L Total Bilirubin 0.3 AST 15 ALT 11 Alkaline Phosphatase 74 Total Protein 6.6 L Albumin 3.2 Globulin 3.4 Albumin/Globulin Ratio 0.9 L Lipase 16 L PD MEDICAL DECISION MAKING - ED course Complexity details: reviewed old records, reviewed results, re-evaluated patient , considered differential, d/w patient ED course: Reevaluated after IV fluids 1 liter and zofran 4mg IV x 2 doses. She appears comfortable, NAD, moist mucous membranes, and reports significant improvement in symptoms. Departure - Departure Disposition: 01 Home, Self Care Clinical Impression: Vomiting Qualifiers: Vomiting type: unspecified Vomiting Intractability: non-intractable Nausea presence: with nausea Qualified Code(s): R11.2 - Nausea with vomiting, unspecified Qualifiers: Weeks of gestation: 16 weeks Qualified Code(s): Z3A.16 - 16 weeks gestation of Condition: Good Instructions: ED Nausea Vomiting Prescriptions: Ondansetron Odt [Zofran] 4 mg TL Q6H PRN #10 tablet PRN Reason: Nausea / Vomiting Discharge Date/Time: 03/13/18 00:05
[2018-03-12] MEDS ORDERED: SODIUM CHLORIDE 0.9% 1,000 ML IV STA (22:39)
[2018-03-12] MEDS ORDERED: ONDANSETRON 4 MG/2 ML VIAL IVP STA ×2 (22:39→23:11)
[2018-03-12 22:45] LABS: BASOPHILS % (AUTO) 0.1 %; EOSINOPHILS % (AUTO) 0.2 %; LYMPHOCYTES # (AUTO) 0.6 10^3/uL (1.5-3.5); LYMPHOCYTES % (AUTO) 4.7 %; MEAN CORPUSCULAR HEMOGLOBIN 28.6 pg (27.0-31.0); MEAN CORPUSCULAR HGB CONC 33.5 g/dL (32.0-36.0); MEAN CORPUSCULAR VOLUME 85.5 fL (81.0-99.0); MEAN PLATELET VOLUME 8.5 fL (7.9-10.8); MONOCYTES # (AUTO) 0.8 10^3/uL (0.0-1.0); MONOCYTES % (AUTO) 6.4 %; NEUTROPHILS # (AUTO) 11.3 10^3/uL (1.5-6.6); NEUTROPHILS % (AUTO) 88.6 %; PLT - PLATELET COUNT 237 10^3/uL (130-450); RED CELL DISTRIBUTION WIDTH 13.4 % (12.0-15.0); WHITE BLOOD COUNT 12.8 x10^3/uL (4.8-10.8)
[2018-03-12 22:53] LABS: ALBUMIN 3.2 g/dL (3.2-5.5); ALBUMIN/GLOBULIN RATIO 0.9 (1.0-2.2); BILIRUBIN,TOTAL 0.3 mg/dL (0.2-1.0); CALCIUM 8.3 mg/dL (8.5-10.3); CREATININE 0.4 mg/dL (0.4-1.0); TOTAL PROTEIN 6.6 g/dL (6.7-8.2)
[2018-03-12] MEDS ORDERED: ONDANSETRON ODT 4 MG Prepack 2 TL STA (23:56)
[2018-03-13 00:03] VITALS: BP 103/69
== END 2018-03-13 00:05 | disposition home or self-care (01) ==
LOC: ED 22:18
DX: O21.2 Late vomiting of pregnancy (principal); O99.333 Smoking (tobacco) complicating pregnancy, third trimester; Z3A.30 30 weeks gestation of pregnancy
CPT/HCPCS: 36415; 80053; 83690; 85025; 96374; 96376; 99283; 99284

== ENCOUNTER 2018-03-26 01:56 | Outpatient (CLI) | payer MEDICAID ==
[2018-03-26 02:34] LABS: BILIRUBIN,URINE NEGATIVE (NEGATIVE); GLUCOSE, URINE (UA) NEGATIVE (NEGATIVE); KETONES,URINE (UA) NEGATIVE (NEGATIVE); LEUKOCYTE ESTERASE, URINE NEGATIVE (NEGATIVE); NITRITE,URINE NEGATIVE (NEGATIVE); OCCULT BLOOD,URINE NEGATIVE (NEGATIVE); PROTEIN,URINE NEGATIVE (NEGATIVE); UROBILINOGEN,URINE 0.2 (NORMAL) E.U./dL (NORMAL)
[2018-03-26 03:03] LABS: BACTERIA,URINE None Seen /HPF (None Seen); CLARITY,URINE CLEAR (CLEAR); RBC,URINE None Seen /HPF (0-5); SQUAMOUS EPITHELIAL CELL,UR RARE Squamous (<= Few)
[2018-03-26 04:02] VITALS: BP 105/54
== END 2018-03-26 03:45 | disposition short-term general hospital (02) ==
LOC: WFO 01:56 → FBP 01:57 → WFO 03:45
PROVIDERS: ATTEND Obstetrics & Gynecology
DX: O99.89 Other specified diseases and conditions complicating pregnancy, childbirth and the puerperium (principal); R51 Headache; Z3A.32 32 weeks gestation of pregnancy
CPT/HCPCS: 81001; 87086; 99213

== ENCOUNTER 2018-03-26 03:55 | Emergency (ER) | payer MEDICAID ==
[2018-03-26] MEDS ORDERED: SODIUM CHLORIDE 0.9% 1,000 ML IV ONE (04:01)
[2018-03-26] MEDS ORDERED: ACETAMINOPHEN 1,000 MG/100 ML 100 ML IV STA (04:01)
[2018-03-26] MEDS ORDERED: ONDANSETRON 4 MG/2 ML VIAL IVP STA (04:01)
--- NOTE | 2018-03-26 04:12 | ED Physician Documentation ---
PD HPI HEADACHE - Stated complaint Stated Complaint: HEADACHE,32W - Chief complaint Chief Complaint: Neuro - History obtained from History obtained from: Patient - History of Present Illness Timing - onset: How many hours ago (few) Timing - onset during: Other (after coitus) Timing - details: Still present Worst headache ever?: Worst headache ever? (No, but different from previous headaches.) Location: Back Quality: Aching Associated symptoms: Nausea. No: Vomiting, Weakness, Numbness - Additional information Additional information: The patient is a 23-year-old female who presents with an occipital headache that started immediately after sexual intercourse tonight. She reports chronic nausea since her . She denies vomiting. She denies fever, visual disturbance, numbness or weakness. She has a history of many headaches in the past, but never quite like this. She is currently at 32 weeks gestation. She was initially evaluated in OB, and subsequently sent to the emergency department for management of her headache. Review of Systems Constitutional: denies: Fever Eyes: denies: Decreased vision, Photophobia Ears: denies: Tinnitus/ringing Nose: denies: Congestion Throat: denies: Oral lesions / sores Cardiac: denies: Chest pain / pressure Respiratory: denies: Dyspnea, Cough GI: reports: Nausea. denies: Abdominal Pain, Vomiting, Diarrhea : reports: Now EGA (at 32 weeks gestation.). denies: Dysuria Skin: denies: Rash Musculoskeletal: denies: Neck pain, Back pain Neurologic: reports: Headache. 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 : None HEENT: None Psych: Depression, Anxiety, ADD/ADHD Musculoskeletal: None Derm: None - Past Surgical History Past Surgical History: Yes General: Cholecystectomy - Present Medications Home Medications: Ambulatory Orders Medication Instructions Recorded Confirmed Ondansetron HCl [Zofran] 4 mg PO Q6H PRN #20 tablet 07/20/17 11/19/17 Ondansetron Odt [Zofran] 4 mg TL Q6H PRN #10 tablet 03/12/18 - Allergies Allergies/Adverse Reactions: Allergies Allergy/AdvReac Type Severity Reaction Status Date / Time No Known Drug Allergies Allergy Verified 03/26/18 04:00 - Social History Does the pt smoke?: Yes Smoking Status: Current every day smoker Does the pt drink ETOH?: No Does the pt have substance abuse?: No - Immunizations Immunizations are current?: No - POLST Patient has POLST: No PD ED PE NORMAL - Vitals Vital signs reviewed: Yes (normal) - General General: Alert and oriented X 3, Well developed/nourished - HEENT HEENT: Atraumatic, PERRL, EOMI, Ears normal, Pharynx benign, Other (Fundi with sharp disc margins, without papilladema.) - Neck Neck: Supple, no meningeal sign, No adenopathy - Cardiac Cardiac: RRR, No murmur - Respiratory Respiratory: No respiratory distress, Clear bilaterally - Abdomen Abdomen: Soft, Non tender, Other (gravid uterus, consistent with dates.) - Back Back: No CVA TTP - Derm Derm: No rash - Extremities Extremities: No edema, No calf tenderness / cord - Neuro Neuro: Alert and oriented X 3, No motor deficit, No sensory deficit Results - Vitals Vitals: Vital Signs - 24 hr 03/26/18 03/26/18 03:58 04:55 Temperature 36.2 C L Heart Rate 62 69 Respiratory 16 18 Rate Blood Pressure 116/78 118/82 H O2 Saturation 100 98 Oxygen O2 Source Room air PD MEDICAL DECISION MAKING - ED course Complexity details: reviewed old records, re-evaluated patient, considered differential, d/w patient ED course: The patient's presentation is significant for post coital occipital headache. Her presentation does not suggest meningitis, temporal arteritis, and I doubt intracranial hemorrhage. Treatment in the emergency department included administration of normal saline 1 L IV, Zofran 4 mg IV, and fentanyl 50 mcg IV and her headache improved with the above treatment, but she reports persistent nausea. Subsequently Compazine 10 mg and Benadryl 50 mg were administered IV. This relieved the patient's nausea as well as her residual headache. The time of discharge she is asymptomatic. I discussed with her outpatient follow-up as well as potentially worrisome signs or symptoms that should prompt reevaluation in the emergency department. Departure - Departure Disposition: 01 Home, Self Care Clinical Impression: Headache Qualifiers: Headache type: unspecified Headache chronicity pattern: acute headache Intractability: not intractable Qualified Code(s): R51 - Headache Qualifiers: Weeks of gestation: 32 weeks Qualified Code(s): Z3A.32 - 32 weeks gestation of Condition: Stable Instructions: ED Cephalgia Unspecified Follow-Up: Jayda Bonilla MD [Physician No Access] - Comments: Drink plenty of fluids. You can use Zofran as previously prescribed if needed for nausea. You can use Tylenol up to 650 mg every 4 hours if needed for pain or discomfort. Follow up with your wolf hunter as planned. Return to the emergency department if you develop increasing headache, persistent vomiting, or otherwise worsening symptoms. Discharge Date/Time: 03/26/18 05:30
[2018-03-26] MEDS ORDERED: fentaNYL 100 MCG/2 ML VIAL IVP STA (04:26)
[2018-03-26 04:56] VITALS: BP 118/82
[2018-03-26] MEDS ORDERED: PROCHLORPERAZINE 10 MG/2 ML VIAL IVP STA (05:01)
[2018-03-26] MEDS ORDERED: diphenhydrAMINE INJ 50 MG/ML VIAL IVP STA (05:01)
== END 2018-03-26 05:30 | disposition home or self-care (01) ==
LOC: ED 03:55
DX: R51 Headache (principal); O99.333 Smoking (tobacco) complicating pregnancy, third trimester; Z3A.32 32 weeks gestation of pregnancy
CPT/HCPCS: 96361; 96374; 96375; 99283; J0131; J1200; 81001; 87086; 99213

== ENCOUNTER 2018-04-07 23:22 | Outpatient (CLI) | payer MEDICAID ==
[2018-04-08 00:33] VITALS: BP 111/55
[2018-04-08 00:35] LABS: BILIRUBIN,URINE NEGATIVE (NEGATIVE); GLUCOSE, URINE (UA) NEGATIVE (NEGATIVE); KETONES,URINE (UA) 15 mg/dL (NEGATIVE); LEUKOCYTE ESTERASE, URINE NEGATIVE (NEGATIVE); NITRITE,URINE NEGATIVE (NEGATIVE); OCCULT BLOOD,URINE NEGATIVE (NEGATIVE); PROTEIN,URINE NEGATIVE (NEGATIVE); UROBILINOGEN,URINE 0.2 (NORMAL) E.U./dL (NORMAL)
[2018-04-08 00:36] LABS: CLARITY,URINE CLEAR (CLEAR)
[2018-04-08 00:47] LABS: BACTERIA,URINE None Seen /HPF (None Seen); RBC,URINE None Seen /HPF (0-5); SQUAMOUS EPITHELIAL CELL,UR NONE SEEN (<= Few)
== END 2018-04-08 00:50 | disposition home or self-care (01) ==
LOC: WFO 23:22 → FBP 23:23 → WFO 04-08 00:50
PROVIDERS: ATTEND Obstetrics & Gynecology
DX: O26.893 Other specified pregnancy related conditions, third trimester (principal); R10.2 Pelvic and perineal pain; Z3A.34 34 weeks gestation of pregnancy
CPT/HCPCS: 81001; 87086; 99212

== ENCOUNTER 2018-04-29 | Outpatient (CLI) | payer MEDICAID ==
[2018-04-29 00:59] LABS: BILIRUBIN,URINE NEGATIVE (NEGATIVE); GLUCOSE, URINE (UA) NEGATIVE (NEGATIVE); KETONES,URINE (UA) NEGATIVE (NEGATIVE); LEUKOCYTE ESTERASE, URINE NEGATIVE (NEGATIVE); NITRITE,URINE NEGATIVE (NEGATIVE); OCCULT BLOOD,URINE NEGATIVE (NEGATIVE); PROTEIN,URINE NEGATIVE (NEGATIVE); UROBILINOGEN,URINE 0.2 (NORMAL) E.U./dL (NORMAL)
[2018-04-29 01:06] LABS: BACTERIA,URINE Few /HPF (None Seen); CLARITY,URINE CLEAR (CLEAR); MUCUS,URINE Few Strands; RBC,URINE 0-5 /HPF (0-5); SQUAMOUS EPITHELIAL CELL,UR MOD Squamous (<= Few)
[2018-04-29 01:20] VITALS: BP 100/59
[2018-04-29] MEDS ORDERED: SODIUM CHLORIDE FLUSH 0.9% 10 ML SYRINGE ONE (01:51)
--- NOTE | 2018-04-29 03:34 | PROVIDER PROGRESS NOTE ---
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 EDC 05/19/18 per patient hx of formal US done in a [place] clinic at 22 weeks EGA placing her at 37 1/7 weeks. Patient has little care during , has been seen at [facility], last visit around 24 weeks EGA. States told by clinic here there is no space for her to be empaneled patient here. Patient presents to [facility] with two complaints: vaginal itching/discharge and right SI joint pain severe in nature. Same partner throughout , no concern for STI. S: As above O: VSS/AF Category I NST with no decels or contractions UA negative ABD SNT, Ux gravid V/V: watery espinoza discharge, no obvious odor Wet Prep (lab): + for Clue cells, no trich or yeast Cx appears visually closed to 1 cm and long ABD US by me: VTX presentation, ant. placenta with DELBERT 9.1 cm and active fetus. Patient interested in OMT, no contraindications: Exam: Cervical: C2,4,6-7 RR, C1,3,5 RL T4-10 SD L2-5 RL, L1 RR Right inominate inferion Treatment: Cervical: HVLA Thoracic: HVLA Lumbar: HVLA Inominates: muscle energy ROM restored and pain in SI joint >50 percent improved A/P: # BV: Flagyl script given for 500 mg bid x 7 days, Urine for GC/CT sent # Multiple MS dysfuctions (see OMT note): corrected # Lack of access to care: I have gotten patient's RN and hospital housekeeper ( first name Kandi) involved to get patient seen in [facility] regularly for remainder of . Patient agrees to come to visits if she will be given appointments. F/U in OB clinic next week. Objective - Vital Signs/Intake & Output Vital Signs: Vital Signs x48h Temp Pulse Resp BP Pulse Ox 04/29/18 00:59 37.1 C 84 18 100/59 L 99 - Lab Results Other Labs: Lab Results x24hrs 04/29/18 Range/Units 00:20 Urine Color YELLOW Urine Clarity CLEAR (CLEAR) Urine pH 6.0 (5.0-7.5) PH Ur Specific [place] 1.015 (1.002-1.030) Urine Protein NEGATIVE (NEGATIVE) mg/dL Urine Glucose (UA) NEGATIVE (NEGATIVE) mg/dL Urine Ketones NEGATIVE (NEGATIVE) mg/dL Urine Occult Blood NEGATIVE (NEGATIVE) Urine Nitrite NEGATIVE (NEGATIVE) Urine Bilirubin NEGATIVE (NEGATIVE) Urine Urobilinogen 0.2 (NORMAL) (NORMAL) E.U./dL Ur Leukocyte Esterase NEGATIVE (NEGATIVE) Urine RBC 0-5 (0-5) /HPF Urine WBC 0-3 (0-5) /HPF Ur Squamous Epith Cells MOD Squamous H (<= Few) Urine Bacteria Few (None Seen) /HPF Urine Mucus Few Strands Urine Culture Comments NOT INDICATED
== END 2018-04-29 03:15 | disposition home or self-care (01) ==
LOC: WFO → FBP 00:02 → WFO 03:15
PROVIDERS: ATTEND Obstetrics & Gynecology
DX: O26.892 Other specified pregnancy related conditions, second trimester (principal); M53.3 Sacrococcygeal disorders, not elsewhere classified; O09.33 Supervision of pregnancy with insufficient antenatal care, third trimester; Z3A.37 37 weeks gestation of pregnancy
CPT/HCPCS: 81001; 87081; 87086; 87210; 87491; 87591; 99214

== ENCOUNTER 2018-05-07 19:19 | Outpatient (CLI) | payer MEDICAID ==
[2018-05-07 20:01] VITALS: BP 127/80
--- NOTE | 2018-05-07 20:48 | PROVIDER PROGRESS NOTE ---
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 Presents for labor check, family member advised her to get seen. C/O increased pelvic pressure. O: VSS/AF RNST, Category 1 with no contractions Cx 4/60/-1/VTX/BOWI A/P: Multiparous patient at 4 cm not in labor, no contractions currently. Lives in [place], told to not go further from hospital than her home. Labor and [facility] precautions. Will return 05/09/18 at 0900 for labor check, sooner prn. No GBS test results in system from 04/29/18. GBS vaginal-rectal swab done today. Objective - Vital Signs/Intake & Output Vital Signs: Vital Signs x48h Temp Pulse Resp BP Pulse Ox 05/07/18 20:00 37.6 C H 112 H 20 127/80 95 05/07/18 19:37 37.4 C 112 H 22 111/71 95
== END 2018-05-07 20:12 | disposition home or self-care (01) ==
LOC: WFO 19:19 → FBP 19:21 → WFO 20:12
PROVIDERS: ATTEND Obstetrics & Gynecology
DX: O26.893 Other specified pregnancy related conditions, third trimester (principal); Z3A.38 38 weeks gestation of pregnancy; R10.2 Pelvic and perineal pain
CPT/HCPCS: 87797; 99213

== ENCOUNTER 2018-05-08 02:31 | Inpatient (IN) | END 2018-05-09 18:43 | disposition home or self-care (01) | DRG 775 ==

== ENCOUNTER 2018-08-28 17:04 | Outpatient (CLI) | payer MEDICAID ==
--- NOTE | 2018-08-29 00:57 | Ultrasound Report ---
Reason: ENCOUNTER FOR TEST, RESULT POSITIVE Procedure Date: 08/28/2018 Accession Number: [id number] / [id number] Procedure: US - OB First Trimester CPT Code: FULL RESULT: EXAM: FIRST TRIMESTER OBSTETRIC ULTRASOUND (Less than 11 weeks) EXAM DATE: 08/28/2018 05:51 PM. CLINICAL HISTORY: ENCOUNTER FOR TEST, RESULT POSITIVE. LMP: 07/06/2018, EGA 7 weeks 4 days, GEOFF 04/12/2019. COMPARISONS: None. TECHNIQUE: Transabdominal and transvaginal ultrasound examination with static image documentation. ASSESSMENT: Gestational Sac: Single intrauterine. Mean gestational sac diameter: 24.4 mm = 7 weeks 0 days. Embryo: CRL (crown-rump length) 4.5 mm = 6 weeks 2 days, GEOFF 04/21/2019. Cardiac activity: 120 beats per minute. Yolk sac: 4 mm. Amniotic fluid: Not accurately assessed at this gestational age. Early placenta: Not visible at this gestational age. Other: No perigestational fluid collection demonstrated. EGA based on the LMP is 7 weeks 4 days with GEOFF 04/12/2019. MATERNAL STRUCTURES: Uterus: Anteverted. Unremarkable. Cervix: Closed. Right Ovary/Adnexa: The ovary measures 4.9 x 2.6 x 3.2 cm, volume 21.3 cc. Unremarkable. Corpus luteum appears to be in the right ovary. Left Ovary/Adnexa: The ovary measures 3.4 x 1.8 x 2.6 cm, volume 8.3 cc. Unremarkable. Free Fluid: None. IMPRESSION: 1. Single living intrauterine at EGA 6 weeks 2 days with GEOFF 04/21/2019 based on crown-rump length. See above. 2. No acute findings are seen. RADIA
== END 2018-08-28 17:05 | disposition home or self-care (01) ==
LOC: DI 17:04
PROVIDERS: ATTEND Registered Nurse
DX: Z32.01 Encounter for pregnancy test, result positive (principal); Z3A.01 Less than 8 weeks gestation of pregnancy
CPT/HCPCS: 76801

== ENCOUNTER 2018-09-11 14:30 | Outpatient (CLI) | payer MEDICAID ==
[2018-09-12 15:41] LABS: MUDS CUTOFF CONCENTRATIONS CUTOFF CONC BELOW:
[2018-09-12 16:20] LABS: AMPHETAMINE SCREEN,URINE POSITIVE (NEGATIVE); BENZODIAZEPINES SCREEN, URINE NEGATIVE (NEGATIVE); COCAINE SCREEN URINE NEGATIVE (NEGATIVE); METHADONE SCREEN, URINE NEGATIVE (NEGATIVE); METHAMPHETAMINES SCREEN, URINE NEGATIVE (NEGATIVE); OPIATE SCREEN, URINE NEGATIVE (NEGATIVE); OXYCODONE SCREEN, URINE NEGATIVE (NEGATIVE); PROPOXYPHENE SCREEN, URINE NEGATIVE (NEGATIVE); TRICYCLIC ANTIDEPRESSANT,URINE NEGATIVE (NEGATIVE)
== END 2018-09-11 14:31 | disposition home or self-care (01) ==
LOC: LAB.R 14:30
PROVIDERS: ATTEND Registered Nurse
DX: Z36.9 Encounter for antenatal screening, unspecified (principal)
CPT/HCPCS: 80306

== ENCOUNTER 2018-10-15 08:00 | Outpatient (CLI) | payer MEDICAID ==
[2018-10-15 15:28] LABS: MUDS CUTOFF CONCENTRATIONS CUTOFF CONC BELOW:
[2018-10-15 19:52] LABS: AMPHETAMINE SCREEN,URINE POSITIVE (NEGATIVE); BENZODIAZEPINES SCREEN, URINE NEGATIVE (NEGATIVE); COCAINE SCREEN URINE NEGATIVE (NEGATIVE); METHADONE SCREEN, URINE NEGATIVE (NEGATIVE); METHAMPHETAMINES SCREEN, URINE NEGATIVE (NEGATIVE); OPIATE SCREEN, URINE NEGATIVE (NEGATIVE); OXYCODONE SCREEN, URINE NEGATIVE (NEGATIVE); PROPOXYPHENE SCREEN, URINE NEGATIVE (NEGATIVE); TRICYCLIC ANTIDEPRESSANT,URINE NEGATIVE (NEGATIVE)
== END 2018-10-15 08:01 | disposition home or self-care (01) ==
LOC: LAB.R 08:00
PROVIDERS: ATTEND Nurse Practitioner Obstetrics & Gynecology
DX: Z32.02 Encounter for pregnancy test, result negative (principal)
CPT/HCPCS: 80306

== ENCOUNTER 2018-10-15 11:16 | Outpatient (CLI) | payer MEDICAID ==
[2018-10-15 12:13] LABS: BASOPHILS % (AUTO) 0.5 %; EOSINOPHILS # (AUTO) 0.1 10^3/uL (0.0-0.7); EOSINOPHILS % (AUTO) 1.2 %; HGB - HEMOGLOBIN 12.3 g/dL (12.0-16.0); LYMPHOCYTES # (AUTO) 1.9 10^3/uL (1.5-3.5); LYMPHOCYTES % (AUTO) 21.7 %; MEAN CORPUSCULAR HEMOGLOBIN 30.1 pg (27.0-31.0); MEAN CORPUSCULAR HGB CONC 35.6 g/dL (32.0-36.0); MEAN CORPUSCULAR VOLUME 84.5 fL (81.0-99.0); MEAN PLATELET VOLUME 8.5 fL (7.9-10.8); MONOCYTES # (AUTO) 0.7 10^3/uL (0.0-1.0); NEUTROPHILS # (AUTO) 5.8 10^3/uL (1.5-6.6); NEUTROPHILS % (AUTO) 68.6 %; PLT - PLATELET COUNT 238 10^3/uL (130-450); RED BLOOD COUNT 4.08 10^6/uL (4.20-5.40); RED CELL DISTRIBUTION WIDTH 13.3 % (12.0-15.0); WHITE BLOOD COUNT 8.5 x10^3/uL (4.8-10.8)
[2018-10-15 13:36] LABS: BILIRUBIN,URINE NEGATIVE (NEGATIVE); GLUCOSE, URINE (UA) NEGATIVE (NEGATIVE); KETONES,URINE (UA) NEGATIVE (NEGATIVE); LEUKOCYTE ESTERASE, URINE NEGATIVE (NEGATIVE); NITRITE,URINE NEGATIVE (NEGATIVE); OCCULT BLOOD,URINE NEGATIVE (NEGATIVE); PH,URINE 7.5 PH (5.0-7.5); PROTEIN,URINE NEGATIVE (NEGATIVE); UROBILINOGEN,URINE 0.2 (NORMAL) E.U./dL (NORMAL)
[2018-10-15 13:39] LABS: CLARITY,URINE CLEAR (CLEAR)
[2018-10-15 13:56] LABS: BACTERIA,URINE Rare /HPF (None Seen); RBC,URINE 0-5 /HPF (0-5); SQUAMOUS EPITHELIAL CELL,UR RARE Squamous (<= Few)
[2018-10-16 12:11] LABS: HEPATITIS C ANTIBODY NON-REACTIVE (NON-REACTIVE)
[2018-10-16 12:12] LABS: HEPATITIS B SURFACE ANTIGEN NON-REACTIVE (NON-REACTIVE)
[2018-10-16 14:53] LABS: HIV AG/AB 4TH GEN NON-REACTIVE (NON-REACTIVE)
== END 2018-10-15 11:17 | disposition home or self-care (01) ==
LOC: LAB 11:16
PROVIDERS: ATTEND Nurse Practitioner Obstetrics & Gynecology
DX: Z32.02 Encounter for pregnancy test, result negative (principal)
CPT/HCPCS: 36415; 81001; 81599; 85025; 86762; 86803; 86850; 86900; 86901; 87086; 87340; 87389

== ENCOUNTER 2019-02-06 08:19 | Outpatient (CLI) | payer MEDICAID ==
[2019-02-06 09:25] LABS: BILIRUBIN,URINE NEGATIVE (NEGATIVE); GLUCOSE, URINE (UA) NEGATIVE (NEGATIVE); KETONES,URINE (UA) NEGATIVE (NEGATIVE); LEUKOCYTE ESTERASE, URINE NEGATIVE (NEGATIVE); NITRITE,URINE NEGATIVE (NEGATIVE); OCCULT BLOOD,URINE NEGATIVE (NEGATIVE); PROTEIN,URINE NEGATIVE (NEGATIVE); UROBILINOGEN,URINE 0.2 (NORMAL) E.U./dL (NORMAL)
[2019-02-06 09:27] LABS: CLARITY,URINE CLEAR (CLEAR)
--- NOTE | 2019-02-06 13:25 | Ultrasound Report ---
Reason: pelvic pressure Procedure Date: 02/06/2019 Accession Number: [id number] / [id number] Procedure: US - OB Limited CPT Code: FULL RESULT: EXAM: LIMITED OBSTETRICAL ULTRASOUND EXAM DATE: 02/06/2019 12:12 PM. CLINICAL HISTORY: Pelvic pressure. Assess cervical length. . COMPARISON: OB FIRST TRIMESTER 08/28/2018 5:51 PM. TECHNIQUE: Real-time sonographic evaluation of the fetus performed by the engine emission technician. Multiple inventory representative static images were saved for review. Additional transvaginal imaging to more accurately evaluate cervical length/placental position/etc. DATING: Established EGA 29 weeks, 2 days with GEOFF 04/22/2019. GENERAL EVALUATION Pena . Cardiac activity: 128 bpm. Presentation: Cephalic. Placenta: Anterior right position. Amniotic fluid: Normal. DELBERT 11.8 cm. MVP 3.6 cm. ANATOMY Not assessed on the current study. MATERNAL STRUCTURES Cervix: Cervix was assessed with transvaginal scanning and measures 21-22 mm. No funneling. No dilatation. IMPRESSION: 1. Pena live intrauterine with gestational age 29 weeks, 2 days based on established GEOFF. 2. Closed cervix. No funneling. No dilatation. Cervical length measures 21-22 mm. RADIA
[2019-02-06] MEDS ORDERED: BETAMETHASONE 30 MG/5 ML VIAL IM ONE ×2 (13:59→14:06)
[2019-02-06] MEDS ORDERED: SODIUM CHLORIDE FLUSH 0.9% 10 ML SYRINGE ONE (14:15)
[2019-02-06] MEDS ORDERED: MAGNESIUM SULFATE IN WATER 20 GM/500 ML IV.SOLN IV ONE (14:15)
[2019-02-06] MEDS ORDERED: LACTATED RINGERS 1,000 ML IV ONE (14:15)
--- NOTE | 2019-02-06 14:22 | HISTORY & PHYSICAL EXAMINATION ---
Admit History - : 3 Parity: 2001 Premature: 0 Ectopic: 0 : 0 Care: positive: [facility] Risk/History: positive: None Smoking Status: Current every day smoker - Other Maternal History Other Maternal History: Pt is a 20 yo EDC 21 april. by 6 week US CC feels like the baby is falling out Pt has had minimal OB Care. awakene and felt like the baby was falling out. Dosent feel any contraction but historicaly dosent feel conractions until ready to push. No vaginal bleeding, or fluid loss. +Emisis, nausia. Chronic ERICKSON Meds/Allgy - Allergies Allergies/Adverse Reactions: Allergies Allergy/AdvReac Type Severity Reaction Status Date / Time No Known Drug Allergies Allergy Verified 03/26/18 04:00 Physical - Abdominal Exam Vital Signs: Temp Pulse Resp BP Pulse Ox 98.1 F 96 16 121/74 99 02/06/19 09:15 02/06/19 13:54 02/06/19 13:54 02/06/19 13:54 02/06/19 09:15
[2019-02-06] MEDS: MAGNESIUM SULFATE 2 GRAM 2 GM/50 ML BAG IV SCH ×2 (14:34→14:57)
[2019-02-06] MEDS ORDERED: LACTATED RINGERS 1,000 ML IV SCH (14:40)
--- NOTE | 2019-02-06 14:58 | HISTORY & PHYSICAL EXAMINATION ---
DATE OF SERVICE: 02/06/2019 Physician: Pardeep Lucero MD PATIENT IDENTIFICATION: The patient is a 24-year-old G3, P2-0-0-2. Her EDC is noted to be 23 April, making her 29.3 weeks EGA. CHIEF COMPLAINT: Feeling like the baby is falling out. HISTORY OF PRESENT ILLNESS: The patient states that she awakened this morning feeling as though the baby was going to fall out. She denies feeling any contractions, but she does not feel contractions until she is ready to push. Both of her previous deliveries have been at 38 weeks EGA. She has had minimal OB care during this . She has refused any vaccinations at this time. She had early dating of her with ultrasound. She had an ultrasound done in the hospital here which showed a cervix which was 2 cm in length. Cervical examination by Dr. Marie showed a cervix which was 2+ cm, soft, posterior, vertex. She does have difficulty with chronic headaches, 7/10. She is having difficult nausea and vomiting. She denies any loss of fluid or bleeding at this time. 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 Surgical History: laparoscopic cholecystectomy. CURRENT MEDICATIONS 1. Wellbutrin. 2. Vyvanse. 3. Prozac. 4. Zantac. 5. Vitamin. 6. Zofran. ALLERGIES: NONE KNOWN. HABITS: The patient smokes 1/2 a pack of cigarettes daily. Denies use of alcohol, street or addictive drugs. FAMILY HISTORY: Negative for anesthetic complications. She had a half-aunt with a 32-week delivery. VACCINES: She has denied any vaccines in her entire life. monitor strip is category 1. Contractions are negative. Cervix 2 cm, vertex, -3, medium, posterior, 20% effaced. ASSESSMENT 1. A 20-year-old G3, P2-0-0-2, who last delivery was 9 months ago with a short- interval . 2. 29.4 weeks. 3. Spontaneous cervical shortening of the length. PLAN: I have discussed with the [facility], Dr. Jason Ochoa, and he has accepted transport. We will administer betamethasone 12 mg now, we will start magnesium now, and we will transport when becomes feasible. TD: 02/06/2019 14:47 EARLE
[2019-02-06] MEDS ORDERED: MAGNESIUM SULFATE 2 GRAM 2 GM/50 ML BAG IV SCH (15:00)
[2019-02-06] MEDS ORDERED: MAGNESIUM SULFATE IN WATER 20 GM/500 ML IV.SOLN IV SCH (15:18)
[2019-02-06 15:30] VITALS: BP 129/82
== END 2019-02-06 16:00 | disposition short-term general hospital (02) ==
LOC: WFO 08:19 → FBP 08:22 → WFO 16:00
PROVIDERS: ATTEND Obstetrics & Gynecology
DX: O26.879 Cervical shortening, unspecified trimester (principal); O99.333 Smoking (tobacco) complicating pregnancy, third trimester; F17.210 Nicotine dependence, cigarettes, uncomplicated; O99.343 Other mental disorders complicating pregnancy, third trimester; F41.9 Anxiety disorder, unspecified; F32.9 Major depressive disorder, single episode, unspecified; F90.9 Attention-deficit hyperactivity disorder, unspecified type; O21.2 Late vomiting of pregnancy; Z3A.29 29 weeks gestation of pregnancy
CPT/HCPCS: 76815; 76817; 81003; 96365; 96372; 99214; J7120; 81001; 87086

== ENCOUNTER 2019-12-19 23:00 | Emergency (ER) | payer MEDICAID ==
[2019-12-19 23:19] LABS: BILIRUBIN,URINE NEGATIVE (NEGATIVE); GLUCOSE, URINE (UA) NEGATIVE (NEGATIVE); KETONES,URINE (UA) NEGATIVE (NEGATIVE); LEUKOCYTE ESTERASE, URINE NEGATIVE (NEGATIVE); NITRITE,URINE NEGATIVE (NEGATIVE); OCCULT BLOOD,URINE NEGATIVE (NEGATIVE); PROTEIN,URINE NEGATIVE (NEGATIVE); UROBILINOGEN,URINE 0.2 (NORMAL) E.U./dL (NORMAL)
[2019-12-19 23:21] LABS: CLARITY,URINE CLEAR (CLEAR); HCG UR QUAL NEGATIVE
[2019-12-19 23:24] LABS: BACTERIA,URINE Rare /HPF (None Seen); RBC,URINE 0-5 /HPF (0-5); SQUAMOUS EPITHELIAL CELL,UR FEW Squamous (<= Few)
[2019-12-19] MEDS ORDERED: SODIUM CHLORIDE 0.9% 1,000 ML IV STA (23:26)
[2019-12-19] MEDS ORDERED: ONDANSETRON 4 MG/2 ML VIAL IVP STA (23:26)
[2019-12-19] MEDS ORDERED: KETOROLAC 15 MG/ML VIAL IVP STA (23:26)
[2019-12-19 23:32] LABS: EOSINOPHILS % (AUTO) 1.7 %; MEAN PLATELET VOLUME 11.1 fL (7.9-10.8); RED CELL DISTRIBUTION WIDTH 13.6 % (12.0-15.0)
[2019-12-19 23:35] LABS: BASOPHILS % (AUTO) 0.2 %; HGB - HEMOGLOBIN 12.8 g/dL (12.0-16.0); LYMPHOCYTES % (AUTO) 21.5 %; MEAN CORPUSCULAR HEMOGLOBIN 28.4 pg (27.0-31.0); MEAN CORPUSCULAR HGB CONC 33.1 g/dL (32.0-36.0); MEAN CORPUSCULAR VOLUME 85.8 fL (81.0-99.0); MONOCYTES % (AUTO) 10.4 %; NEUTROPHILS % (AUTO) 65.8 %; PLT - PLATELET COUNT 214 10^3/uL (130-450); RED BLOOD COUNT 4.51 10^6/uL (4.20-5.40); WHITE BLOOD COUNT 9.3 x10^3/uL (4.8-10.8)
[2019-12-19 23:37] LABS: ABNORMAL LYMPHS % (MANUAL) 0 %
[2019-12-19 23:45] LABS: ALBUMIN/GLOBULIN RATIO 1.4 (1.0-2.2); BILIRUBIN,TOTAL 0.5 mg/dL (0.2-1.0); CALCIUM 8.8 mg/dL (8.5-10.3); CREATININE 0.6 mg/dL (0.4-1.0); TOTAL PROTEIN 6.8 g/dL (6.7-8.2)
[2019-12-19 23:52] LABS: BAND NEUTROPHILS % (MANUAL) 1 %; EOSINOPHILS # (MANUAL) 0.2 10^3/uL (0-0.7); LYMPHOCYTES # (MANUAL) 0.9 10^3/uL (1.5-3.5); LYMPHOCYTES % (MANUAL) 10 %; MONOCYTES # (MANUAL) 0.9 10^3/uL (0.0-1.0); PLATELET ESTIMATE, MANUAL NORMAL (130-450,000) (NORMAL); RBC MORPHOLOGY (MULTIPLE) NORMAL APPEARANCE (NORMAL)
[2019-12-19 23:53] LABS: DIFFERENTIAL COMMENT MANUAL DIFFERENTIAL
[2019-12-20] MEDS ORDERED: MORPHINE 2 MG/ML CARPUJECT IVP STA (00:25)
[2019-12-20] MEDS ORDERED: IOVERSOL 320 100 ML VIAL IVP ONE ×2 (00:47→01:06)
--- NOTE | 2019-12-20 01:26 | CT Report ---
Reason: RLQ Abdominal pain, fever Procedure Date: 12/20/2019 Accession Number: [id number] / [id number] Procedure: CT - Abdomen/Pelvis W CPT Code: Final Report FULL RESULT: EXAM: CT ABDOMEN AND PELVIS EXAM DATE: 12/20/2019 01:09 AM. CLINICAL HISTORY: RLQ Abdominal pain, fever. COMPARISONS: None. TECHNIQUE: Routine helical CT imaging was performed through the abdomen and pelvis. IV contrast: OPTI 320 100ML. Enteric contrast: No. Reconstructions: Coronal and sagittal. In accordance with CT protocol optimization, one or more of the following dose reduction techniques were utilized for this exam: automated exposure control, adjustment of mA and/or KV based on patient size, or use of iterative reconstructive technique. FINDINGS: ABDOMEN: Lung Bases: Incompletely included lower lungs demonstrate scattered atelectasis. Heart size is within normal limits. No basilar effusions. Liver: Unremarkable. Spleen: Unremarkable. Pancreas: Unremarkable. Gallbladder/Bile Ducts: Status post cholecystectomy. Biliary tree is normal caliber. Adrenal Glands: Unremarkable. Kidneys: No mass, calculi, or hydronephrosis. Peritoneum/Mesentery/Bowel: No free fluid, free air, or collection. No intestinal obstruction or inflammation. The appendix is within normal limits. Lymph nodes: No mesenteric, periportal, or retroperitoneal lymphadenopathy. Vasculature: Abdominal aorta is nonaneurysmal. Portal vein is patent. Hepatic veins are patent. PELVIS: The bladder is unremarkable for the degree of distention. Uterus and ovaries are present. No obvious abnormally enlarged adnexal abnormalities. No pelvic lymphadenopathy. Bones: No suspicious osseous lesions. IMPRESSION: No acute abnormalities. Normal appendix. RADIA
--- NOTE | 2019-12-20 01:41 | ED Physician Documentation ---
PD HPI ABD PAIN - Stated complaint Stated Complaint: ABD PX - Chief complaint Chief Complaint: Abd Pain - History obtained from History obtained from: Patient (This young lady 24-year-old history of tubal ligation presented to the emergency room with right lower quadrant abdominal pain that is gradually worsened. Is been ongoing for the last few days. Mild nausea and vomiting. No fever no chills no hematuria no dysuria. In emergency room patient is alert and oriented x3. Not in distress.), Family - History of Present Illness Timing - duration: Days (3-5) Timing - details: Gradual onset Review of Systems Ten Systems: 10 systems reviewed and negative Constitutional: reports: Reviewed and negative Eyes: reports: Reviewed and negative Ears: reports: Reviewed and negative Nose: reports: Reviewed and negative Throat: reports: Reviewed and negative Cardiac: reports: Reviewed and negative Respiratory: reports: Reviewed and negative GI: reports: Abdominal Pain : reports: Reviewed and negative Skin: reports: Reviewed and negative Musculoskeletal: reports: Reviewed and negative Neurologic: reports: Reviewed and negative Psychiatric: reports: Reviewed and negative Endocrine: reports: Reviewed and negative Immunocompromised: reports: Reviewed and negative PD PAST MEDICAL HISTORY - Past Medical History Past Medical History: Yes Cardiovascular: None Respiratory: None Neuro: None Endocrine/Autoimmune: None GI: None 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 : None HEENT: None Psych: Depression, Anxiety, ADD/ADHD Musculoskeletal: None Derm: None - Past Surgical History Past Surgical History: Yes General: Cholecystectomy - Present Medications Home Medications: Ambulatory Orders Medication Instructions Recorded Confirmed Ibuprofen 600 mg PO Q6HR #30 tablet 12/20/19 Ondansetron Odt [Zofran] 4 mg TL Q6H PRN #10 tablet 12/20/19 - Allergies Allergies/Adverse Reactions: Allergies Allergy/AdvReac Type Severity Reaction Status Date / Time No Known Drug Allergies Allergy Verified 12/19/19 23:08 - Social History Does the pt smoke?: Yes Smoking Status: Current every day smoker Does the pt drink ETOH?: No Does the pt have substance abuse?: No - Immunizations Immunizations are current?: No - POLST Patient has POLST: No PD ED PE NORMAL - Vitals Vital signs reviewed: Yes - General General: Alert and oriented X 3, No acute distress - HEENT HEENT: Atraumatic, PERRL, EOMI - Neck Neck: Supple, no meningeal sign - Cardiac Cardiac: RRR, No murmur - Respiratory Respiratory: Clear bilaterally - Abdomen Abdomen: Normal bowel sounds, Soft, Non distended, Other (Right lower quadrant tenderness on palpation, no guarding or rebound, no obturator sign) - Derm Derm: Warm and dry - Extremities Extremities: No deformity - Neuro Neuro: Alert and oriented X 3 - Psych Psych: Normal mood, Normal affect Results - Vitals Vitals: Vital Signs - 24 hr 12/19/19 12/19/19 12/20/19 23:02 23:50 00:03 Temperature 36.7 C Heart Rate 81 76 78 Respiratory 18 16 16 Rate Blood Pressure 127/72 111/73 108/73 O2 Saturation 100 100 99 12/20/19 12/20/19 12/20/19 00:27 00:50 01:49 Temperature 37.6 C H Heart Rate 87 86 82 Respiratory 18 16 16 Rate Blood Pressure 108/73 110/70 106/69 O2 Saturation 99 99 100 Oxygen O2 Source Room air - Labs Labs: Laboratory Tests 12/19/19 12/19/19 12/19/19 23:05 23:05 23:20 WBC 9.3 RBC 4.51 Hgb 12.8 Hct 38.7 MCV 85.8 MCH 28.4 MCHC 33.1 RDW 13.6 Plt Count 214 MPV 11.1 H Neut # (Auto) Not Reportable Lymph # (Auto) Not Reportable Hood # (Auto) Not Reportable Eos # (Auto) Not Reportable Baso # (Auto) Not Reportable Absolute Nucleated RBC Not Reportable Total Counted 100 Band Neuts % (Manual) 1 Abnorm Lymph % (Manual) 0 Nucleated RBC % Not Reportable Neutrophils # (Manual) 7.3 H Lymphocytes # (Manual) 0.9 L Monocytes # (Manual) 0.9 Eosinophils # (Manual) 0.2 Basophils # (Manual) 0.0 Differential Comment MANUAL DIFFERENTIAL Platelet Estimate NORMAL (130-450,000) RBC Morph Micro Appear NORMAL APPEARANCE Sodium Potassium Chloride Carbon Dioxide Anion Gap BUN Creatinine Estimated GFR (MDRD) Glucose Calcium Total Bilirubin AST ALT Alkaline Phosphatase Total Protein Albumin Globulin Albumin/Globulin Ratio Lipase Urine Color YELLOW Urine Clarity CLEAR Urine pH 7.0 Ur Specific [place] 1.010 1.010 Urine Protein NEGATIVE Urine Glucose (UA) NEGATIVE Urine Ketones NEGATIVE Urine Occult Blood NEGATIVE Urine Nitrite NEGATIVE Urine Bilirubin NEGATIVE Urine Urobilinogen 0.2 (NORMAL) Ur Leukocyte Esterase NEGATIVE Urine RBC 0-5 Urine WBC 0-3 Ur Squamous Epith Cells FEW Squamous Urine Bacteria Rare Urine Culture Comments NOT INDICATED Urine HCG, Qual NEGATIVE 12/19/19 23:20 WBC RBC Hgb Hct MCV MCH MCHC RDW Plt Count MPV Neut # (Auto) Lymph # (Auto) Hood # (Auto) Eos # (Auto) Baso # (Auto) Absolute Nucleated RBC Total Counted Band Neuts % (Manual) Abnorm Lymph % (Manual) Nucleated RBC % Neutrophils # (Manual) Lymphocytes # (Manual) Monocytes # (Manual) Eosinophils # (Manual) Basophils # (Manual) Differential Comment Platelet Estimate RBC Morph Micro Appear Sodium 139 Potassium 3.7 Chloride 103 Carbon Dioxide 26 Anion Gap 10.0 BUN 11 Creatinine 0.6 Estimated GFR (MDRD) 122 Glucose 78 Calcium 8.8 Total Bilirubin 0.5 AST 34 ALT 72 H Alkaline Phosphatase 114 Total Protein 6.8 Albumin 4.0 Globulin 2.8 Albumin/Globulin Ratio 1.4 Lipase 27 Urine Color Urine Clarity Urine pH Ur Specific [place] Urine Protein Urine Glucose (UA) Urine Ketones Urine Occult Blood Urine Nitrite Urine Bilirubin Urine Urobilinogen Ur Leukocyte Esterase Urine RBC Urine WBC Ur Squamous Epith Cells Urine Bacteria Urine Culture Comments Urine HCG, Qual - Rads (name of study) No standard instances Radiology: Other (CT abdomen and pelvis with and without contrast is negative. Appendix was visualized.) PD MEDICAL DECISION MAKING - ED course Complexity details: d/w patient ED course: 24-year-old with abdominal pain over the right lower quadrant with differential diagnosis of acute appendicitis, ovarian cyst, cystitis, renal calculi,. Initial blood work shows normal finding. Because of a examination is quite typical of acute appendicitis, CT scan was performed. She agreed with this approach She is reassessed at [address] with normal finding. His appendix was clearly visualized without pathology. She is asked to follow with her primary care doctor in the next 5 to 7 days for reassessment. Could be ovarian cystOr other nonspecific abdominal pain. At time of discharge, patient is comfortable.. Departure - Departure Disposition: 01 Home, Self Care Clinical Impression: Abdominal pain Qualifiers: Abdominal location: right lower quadrant Qualified Code(s): R10.31 - Right lower quadrant pain Condition: Stable Instructions: ED Abdominal Pain Unkn Cause Male Prescriptions: Ibuprofen 600 mg PO Q6HR #30 tablet Ondansetron Odt [Zofran] 4 mg TL Q6H PRN #10 tablet PRN Reason: Nausea / Vomiting Discharge Date/Time: 12/20/19 01:50
[2019-12-20 01:50] VITALS: BP 106/69
== END 2019-12-20 01:50 | disposition home or self-care (01) ==
LOC: ED 23:00
DX: R10.31 Right lower quadrant pain (principal); R11.2 Nausea with vomiting, unspecified; Z98.51 Tubal ligation status; F17.200 Nicotine dependence, unspecified, uncomplicated
CPT/HCPCS: 36415; 74177; 80053; 81001; 81025; 83690; 85025; 96361; 96374; 96375; 99284; Q9967; 87086

== ENCOUNTER 2020-03-30 17:19 | Outpatient (CLI) | payer MEDICAID | END 2020-03-30 17:20 | disposition home or self-care (01) | LOC: COV 17:19 | PROVIDERS: ATTEND Family Medicine | DX: R50.9 Fever, unspecified (principal); M79.10 Myalgia, unspecified site; J02.9 Acute pharyngitis, unspecified | CPT/HCPCS: 81599 ==

== ENCOUNTER 2020-09-18 01:26 | Outpatient (CLI) | payer MEDICAID | END 2020-09-18 01:27 | disposition critical access hospital (66) | LOC: EMS 01:26 | PROVIDERS: ATTEND Surgery | DX: R20.0 Anesthesia of skin (principal); R42 Dizziness and giddiness; R51.9 Headache, unspecified | CPT/HCPCS: A0425; A0429 ==

== ENCOUNTER 2020-09-18 01:49 | Emergency (ER) | payer MEDICAID ==
[2020-09-18] MEDS ORDERED: LORazepam 1 MG TABLET PO STA (02:16)
[2020-09-18 02:29] LABS: BASOPHILS % (AUTO) 0.4 %; EOSINOPHILS # (AUTO) 0.1 10^3/uL (0.0-0.7); EOSINOPHILS % (AUTO) 1.5 %; LYMPHOCYTES # (AUTO) 2.4 10^3/uL (1.5-3.5); LYMPHOCYTES % (AUTO) 25.9 %; MEAN CORPUSCULAR HEMOGLOBIN 29.6 pg (27.0-31.0); MEAN CORPUSCULAR HGB CONC 34.3 g/dL (32.0-36.0); MEAN CORPUSCULAR VOLUME 86.3 fL (81.0-99.0); MEAN PLATELET VOLUME 10.6 fL (7.9-10.8); MONOCYTES # (AUTO) 0.8 10^3/uL (0.0-1.0); MONOCYTES % (AUTO) 8.4 %; NEUTROPHILS # (AUTO) 5.8 10^3/uL (1.5-6.6); NEUTROPHILS % (AUTO) 63.5 %; PLT - PLATELET COUNT 265 10^3/uL (130-450); RED BLOOD COUNT 4.39 10^6/uL (4.20-5.40); RED CELL DISTRIBUTION WIDTH 12.8 % (12.0-15.0); WHITE BLOOD COUNT 9.2 x10^3/uL (4.8-10.8)
[2020-09-18 02:45] LABS: ALBUMIN/GLOBULIN RATIO 1.5 (1.0-2.2); BILIRUBIN,TOTAL 0.5 mg/dL (0.2-1.0); CALCIUM 9.2 mg/dL (8.5-10.3); CREATININE 0.6 mg/dL (0.4-1.0); TOTAL PROTEIN 6.7 g/dL (6.7-8.2)
[2020-09-18] MEDS ORDERED: POTASSIUM CHLORIDE 20 MEQ TABLET PO STA (03:02)
--- NOTE | 2020-09-18 03:06 | ED Physician Documentation ---
History of Present Illness - Stated complaint Stated Complaint: R SIDE NUMBNESS - Chief complaint Chief Complaint: Neuro - History obtained from History obtained from: Patient, EMS - Additonal information Additional information: Patient comes emergency department via EMS complaining of right body numbness that began about 1 hour ago while she was sitting on the couch watching TV. Patient states the numbness started right around her lip and then spread over her cheek and down her neck onto her shoulder. She states she got up to walk around and then began to feel the numbness spread down her entire right body. She states her body felt very heavy but she did not notice any focal weakness anywhere. No visual changes or difficulty speaking or swallowing. No facial droop. She states the entire episode lasted about 3 minutes and then gradually began to resolve. Patient states that she has never had anything like this happen before. She states that now, she only has a slight bit of numbness in her bottom lip but otherwise is back to normal. Review of Systems Ten Systems: 10 systems reviewed and negative Constitutional: reports: Reviewed and negative Eyes: reports: Reviewed and negative Ears: reports: Reviewed and negative Nose: reports: Reviewed and negative Throat: reports: Reviewed and negative Cardiac: reports: Reviewed and negative Respiratory: reports: Reviewed and negative GI: reports: Reviewed and negative : reports: Reviewed and negative Skin: reports: Reviewed and negative Musculoskeletal: reports: Reviewed and negative Neurologic: reports: Numbness. 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 - Present Medications Home Medications: Ambulatory Orders Medication Instructions Recorded Confirmed Potassium Chloride [K-Dur] 20 meq PO DAILY #7 tablet 09/18/20 - Allergies Allergies/Adverse Reactions: Allergies Allergy/AdvReac Type Severity Reaction Status Date / Time No Known Drug Allergies Allergy Verified 12/19/19 23:08 - Social History Does the pt smoke?: No Smoking Status: Never smoker Does the pt drink ETOH?: No Does the pt have substance abuse?: No - Immunizations Immunizations are current?: No - POLST Patient has POLST: No PD ED PE NORMAL - Vitals Vital signs reviewed: Yes - General General: Alert and oriented X 3, Well developed/nourished, Other (PT is distraught, tearful.) - HEENT HEENT: Atraumatic, PERRL, EOMI, Moist mucous membranes - Neck Neck: Supple, no meningeal sign - Cardiac Cardiac: RRR, No murmur, Strong equal pulses - Respiratory Respiratory: No respiratory distress, Clear bilaterally - Abdomen Abdomen: Soft, Non tender, Non distended - Back Back: No spinal TTP - Derm Derm: Normal color, Warm and dry, No rash - Extremities Extremities: No deformity, No edema, No calf tenderness / cord - Neuro Neuro: Alert and oriented X 3, multi township assessor 2-12 intact, No motor deficit, Normal speech, Other (Reports mild decrease in sensation on R face compared to L with sensory testing. Sensation symmetrical and intact in spenser. upper/lower extremities.) - Psych Psych: Normal mood, Normal affect Results - Vitals Vitals: Vital Signs - 24 hr 09/18/20 09/18/20 09/18/20 01:49 02:07 03:18 Temperature 37.0 C 37 C Heart Rate 61 61 61 Respiratory 15 15 18 Rate Blood Pressure 111/61 111/61 103/68 O2 Saturation 97 97 98 Oxygen O2 Source Room air - Labs Labs: Laboratory Tests 09/18/20 09/18/20 02:26 02:26 WBC 9.2 RBC 4.39 Hgb 13.0 Hct 37.9 MCV 86.3 MCH 29.6 MCHC 34.3 RDW 12.8 Plt Count 265 MPV 10.6 Neut # (Auto) 5.8 Lymph # (Auto) 2.4 Mcpherson # (Auto) 0.8 Eos # (Auto) 0.1 Baso # (Auto) 0.0 Absolute Nucleated RBC 0.00 Nucleated RBC % 0.0 Sodium 138 Potassium 3.4 L Chloride 102 Carbon Dioxide 25 Anion Gap 11.0 BUN 10 Creatinine 0.6 Estimated GFR (MDRD) 121 Glucose 113 H Calcium 9.2 Total Bilirubin 0.5 AST 16 ALT 19 Alkaline Phosphatase 80 Total Protein 6.7 Albumin 4.0 Globulin 2.7 Albumin/Globulin Ratio 1.5 Lipase 25 - Rads (name of study) Ct head Radiology: Final report received, EMP read indepedently, See rad report (neg) PD MEDICAL DECISION MAKING - ED course Complexity details: reviewed results, re-evaluated patient, considered differential, d/w patient ED course: PT was anxious, but otherwise well-appearing, with minimal objective findings otherwise. I d/w pt that she is very low-risk, overall, for CVA. She has been worked up with labs, which demonstrate mild hypokalemia, which could be contributing to her paresthesias. I have started her on a potassium supplement here in the ED. The pt was feeling better after PO Ativan. We have discussed the need for f/u with PCP, and the usual indications for return. Departure - Departure Disposition: 01 Home, Self Care Clinical Impression: Hypokalemia, Paresthesia, Anxiety Condition: Stable Instructions: ED Potassium Deficiency, ED Panic Attack, ED Paraesthesias Prescriptions: Potassium Chloride [K-Dur] 20 meq PO DAILY #7 tablet Comments: Your CT scan looks good. There is no evidence of a stroke, which as we discussed was fairly low likelihood, given your young age and low number of risk factors. Your labs showed only a mildly decreased potassium. Low potassium can sometimes cause numbness and tingling, and as such, we will put you on a short course of a supplement to bring your level back to normal. You may follow-up with any local family practitioner to have this rechecked. Please refer to the list of family practitioners below. Discharge Date/Time: 09/18/20 03:18
[2020-09-18 03:19] VITALS: BP 103/68
--- NOTE | 2020-09-18 07:02 | CT Report ---
PROCEDURE: HEAD WO INDICATIONS: R side numb, heavy TECHNIQUE: Noncontrast 4.5 mm thick angled axial sections acquired from the foramen magnum to the vertex. For r adiation dose reduction, the following was used: automated exposure control, adjustment of mA and/or kV according to patient size. COMPARISON: None. FINDINGS: Image quality: Excellent. CSF spaces: Basal cisterns are patent. No extra-axial fluid collections. Ventricles are normal in size and shape. Brain: No midline shift. No intracranial masses or hemorrhage. Purvis-white matter interface is norm al. Skull and face: Calvarium and visualized facial bones are intact, without suspicious lesions. Sinuses: Visualized sinuses and mastoids are clear. IMPRESSION: No acute intracranial disease process. Reviewed by: Dilia Hamlin MD, PhD on 09/18/2020 7:01 AM PDT Approved by: Dilia Hamlin MD, PhD on 09/18/2020 7:01 AM PDT Station ID: [id number]
== END 2020-09-18 03:18 | disposition home or self-care (01) ==
LOC: EDUNIT# → ED 01:49
DX: E87.6 Hypokalemia (principal); R20.2 Paresthesia of skin; F41.9 Anxiety disorder, unspecified
CPT/HCPCS: 36415; 70450; 80053; 83690; 85025; 99284; A9270; J8499

== ENCOUNTER 2021-02-01 10:26 | Outpatient (CLI) | payer MEDICAID ==
--- NOTE | 2021-02-01 13:46 | Ultrasound Report ---
PROCEDURE: Pelvic w/Transvaginal INDICATIONS: CHRONIC PELVIC PAIN TECHNIQUE: Real-time scanning was performed of the pelvic organs, with image documentation. Additional endovagi nal scanning was necessary due to incomplete visualization of the adnexal and endometrial structures by transabdominal scanning. COMPARISON: None. FINDINGS: No pathologic free abdominal or pelvic fluid. Uterus: Uterus is normal in size at 9.2 x 4.1 x 5.8 cm. The endometrium measures 9.4 mm in combined thickness. Ovaries: Right ovary measures 5.2 x 2.4 x 2.8 cm, volume 18.5 cc. There is a focus of somewhat heter ogeneous echogenicity within the right ovary measuring 21 x 15 x 13 mm. There is a minimal appearance of free fluid adjacent to the right ovary. Left ovary measures 4.0 x 2.8 x 3.3 cm, volume 19.1 cc. IMPRESSION: Focus of heterogeneous echogenicity with trace adjacent fluid in the right ovary suggestive of involu ting cyst. Reviewed by: Laila Ventura MD on 02/01/2021 1:45 PM PDT Approved by: Laila Ventura MD on 02/01/2021 1:45 PM PDT Station ID: [id number]
== END 2021-02-01 10:27 | disposition home or self-care (01) ==
LOC: DI 10:26
PROVIDERS: ATTEND Obstetrics & Gynecology
DX: R10.2 Pelvic and perineal pain (principal)

== ENCOUNTER 2021-06-07 18:59 | Emergency (ER) | payer MEDICAID ==
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
[2021-06-07 20:38] VITALS: BP 125/65
== END 2021-06-07 20:36 | disposition home or self-care (01) ==
LOC: ED 18:59
DX: S46.912A Strain of unspecified muscle, fascia and tendon at shoulder and upper arm level, left arm, initial encounter (principal); V93.4 Struck by falling object on board watercraft; Y93.89 Activity, other specified; Y92.009 Unspecified place in unspecified non-institutional (private) residence as the place of occurrence of the external cause
CPT/HCPCS: 99283; 99284

== ENCOUNTER 2021-07-19 16:42 | Emergency (ER) | payer MEDICAID ==
--- NOTE | 2021-07-19 17:11 | ED Physician Documentation ---
PD HPI URI - Stated complaint Stated Complaint: COUGH,CONGESTED - Chief complaint Chief Complaint: Resp - History obtained from History obtained from: Patient - History of Present Illness Timing - onset: How many weeks ago (2) Timing duration: Weeks Timing details: Gradual onset, Still present, Waxing and waning Associated symptoms: Nasal congestion, Rhinorrhea, Sinus pain, Productive cough, Chest pain, Dyspnea Improves by: Rest, Medication Worsened by: Activity Similar symptoms before: Has not had sx before Recently seen: Not recently seen - Additional information Additional information: Previously well 26-year-old unvaccinated female has developed a cough and congestion. She has not had a fever associated with this she has been sick for 2 weeks. She has made some green sputum from her nose which was present for 2 days and is now gone. She has otherwise clear phlegm that she is coughing up. She does have some mild shortness of breath and she has some anterior chest carla n. Review of Systems Constitutional: denies: Fever, Chills, Myalgias Eyes: denies: Decreased vision Ears: denies: Ear pain Nose: reports: Rhinorrhea / runny nose, Congestion, Sinus pressure / pain Throat: reports: Sore throat Cardiac: reports: Chest pain / pressure. denies: Palpitations Respiratory: reports: Dyspnea, Cough GI: denies: Abdominal Pain, Nausea, Vomiting : denies: Dysuria, Frequency PD PAST MEDICAL HISTORY - Past Medical History Cardiovascular: None Respiratory: None Neuro: None Endocrine/Autoimmune: None GI: None, Cholelithiasis AD CLERK: None : None HEENT: None Psych: Depression, Anxiety, ADD/ADHD Musculoskeletal: None Derm: None - Past Surgical History Past Surgical History: Yes General: Cholecystectomy /AD CLERK: Tubal ligation - Present Medications Home Medications: Ambulatory Orders Medication Instructions Recorded Confirmed Ibuprofen [Motrin] 800 mg PO Q8H PRN #30 tablet 06/07/21 - Allergies Allergies/Adverse Reactions: Allergies Allergy/AdvReac Type Severity Reaction Status Date / Time No Known Drug Allergies Allergy Verified 07/19/21 16:46 - Social History Does the pt smoke?: No Smoking Status: Never smoker Does the pt drink ETOH?: No Does the pt have substance abuse?: No - Immunizations Immunizations are current?: No - POLST Patient has POLST: No PD ED PE NORMAL - Vitals Vital signs reviewed: Yes (Normal) - General General: Alert and oriented X 3, No acute distress, Well developed/nourished - HEENT HEENT: Atraumatic, PERRL, EOMI, Ears normal, Moist mucous membranes, Other (Mild pharyngeal erythema with tonsillar hypertrophy without exudate. maxillary sinus point tenderness L>R, ) - Neck Neck: Supple, no meningeal sign, No bony TTP - Cardiac Cardiac: RRR, No murmur - Respiratory Respiratory: No respiratory distress, Clear bilaterally - Abdomen Abdomen: Soft, Non tender - Back Back: No CVA TTP, No spinal TTP - Derm Derm: Normal color, Warm and dry, No rash - Extremities Extremities: No deformity, No edema - Neuro Neuro: Alert and oriented X 3, asthma educator 2-12 intact, No motor deficit, No sensory deficit, Normal speech Eye Opening: Spontaneous Motor: Obeys Commands Verbal: Oriented GCS Score: 15 - Psych Psych: Normal mood, Normal affect Results - Vitals Vitals: Vital Signs - 24 hr 07/19/21 07/19/21 16:46 17:52 Temperature 36.5 C Heart Rate 60 60 Respiratory 16 16 Rate Blood Pressure 111/75 120/69 O2 Saturation 100 100 Oxygen O2 Source Room air - Rads (name of study) chest Radiology: Prelim report reviewed, EMP read indepedently, See rad report PD MEDICAL DECISION MAKING - ED course Complexity details: reviewed results, re-evaluated patient, considered differential, d/w patient ED course: 26-year-old female with a 2-week history of URI symptoms has not had fever she did have some production of yellow phlegm from her nares which is now cleared up and she does have some residual tenderness to the left maxillary sinus. I suspect she has a viral infection that is improving and she may well have Covid. A Covid swab is obtained as a send out. A chest x-ray is obtained Departure - Departure Disposition: 01 Home, Self Care Clinical Impression: Viral URI with cough Condition: Stable Instructions: ED URI Viral Follow-Up: [facility] [Provider Group] Comments: A nasal swab for COVID has been obtained and results will be available in 2 days. We will call a positive results and you can look up your results on our patient portal. Discharge Date/Time: 07/19/21 17:52
[2021-07-19] MEDS ORDERED: DEXAMETHASONE 10 MG/ML VIAL PO STA (17:41)
[2021-07-19] MEDS ORDERED: CHERRY SYRUP 10 ML UDC PO ONE (17:41)
[2021-07-19 17:53] VITALS: BP 120/69
--- NOTE | 2021-07-19 18:02 | XRAY Report ---
PROCEDURE: Chest 1 View X-Ray INDICATIONS: Chest pain TECHNIQUE: One view of the chest was acquired. COMPARISON: None FINDINGS: Surgical changes and devices: None. Lungs and pleura: No pleural effusions or pneumothorax. Lungs are clear. Mediastinum: Mediastinal contours appear normal. Heart size is normal. Bones and chest wall: No suspicious bony lesions. Overlying soft tissues appear unremarkable. IMPRESSION: No acute cardiopulmonary process demonstrated radiographically. Reviewed by: Nikolay White MD on 07/19/2021 6:01 PM PDT Approved by: Nikolay White MD on 07/19/2021 6:01 PM PDT Station ID: [id number]
== END 2021-07-19 17:52 | disposition home or self-care (01) ==
LOC: ED 16:42
DX: U07.1 COVID-19 (principal); J06.9 Acute upper respiratory infection, unspecified
CPT/HCPCS: 71045; 87635; 99284; A9270

== ENCOUNTER 2022-03-21 14:23 | Emergency (ER) | payer MEDICAID ==
--- NOTE | 2022-03-21 15:37 | ED Physician Documentation ---
History of Present Illness - Stated complaint Stated Complaint: LT HIP/BACK PX - Chief complaint Chief Complaint: Back Pain - Additonal information Additional information: 19-year-old female presents emergency department for evaluation of acute on chronic right hip pain worse after a fall Monday. Also reporting dysuria and constipation. Patient states that her hip pain and low back pain became acutely worse after recent sexual activity as well. She states that she has had chronic hip pain for years and has been told she has cysts on the hip. There have been no fevers. No saddle anesthesia. No loss of bowel or bladder coordination. She has a nearly normal gait. She has been taking Aleve without relief. 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 : None HEENT: None Psych: Depression, Anxiety, ADD/ADHD Musculoskeletal: None Derm: None - Past Surgical History Past Surgical History: Yes General: Cholecystectomy /LEAN MANAGER: Tubal ligation - Present Medications Home Medications: Ambulatory Orders Medication Instructions Recorded Confirmed HYDROcod/ACETAM 5/325 [[place] 5/325] 1 - 2 tablet PO Q6H PRN #10 tablet 03/21/22 - Allergies Allergies/Adverse Reactions: Allergies Allergy/AdvReac Type Severity Reaction Status Date / Time ethinyl estradiol Allergy Unknown Verified 03/21/22 14:52 [From Lo Loestrin Fe] ferrous fumarate Allergy Unknown Verified 03/21/22 14:52 [From Lo Loestrin Fe] norethindrone acetate Allergy Unknown Verified 03/21/22 14:52 [From Lo Loestrin Fe] - Social History Does the pt smoke?: No Smoking Status: Never smoker Does the pt drink ETOH?: No Does the pt have substance abuse?: No - Immunizations Immunizations are current?: No - POLST Patient has POLST: No PD ED PE NORMAL - General General: Alert and oriented X 3, No acute distress, Well developed/nourished - HEENT HEENT: Atraumatic - Neck Neck: Supple, no meningeal sign, No adenopathy - Cardiac Cardiac: RRR, No murmur - Respiratory Respiratory: No respiratory distress, Clear bilaterally - Abdomen Abdomen: Normal bowel sounds, Soft, Non tender - Back Back: No CVA TTP, No spinal TTP, Other (Tenderness at the posterior right SI joint. Normal forward flexion range of motion of the lumbar spine. No midline spinous process tenderness. Mildly antalgic gait but bears full weight on the right hip. Full range of motion.) - Derm Derm: Normal color, Warm and dry, No rash - Extremities Extremities: No deformity, No tenderness to palpate, Normal ROM s pain - Neuro Neuro: Alert and oriented X 3, slubber tender 2-12 intact Eye Opening: Spontaneous Motor: Obeys Commands Verbal: Oriented GCS Score: 15 - Psych Psych: Normal mood Results - Vitals Vitals: Vital Signs - 24 hr 03/21/22 14:46 Temperature 36.5 C Heart Rate 57 L Respiratory 14 Rate Blood Pressure 117/69 O2 Saturation 100 Oxygen O2 Source Room air - Labs Labs: Laboratory Tests 03/21/22 15:43 Urine Color YELLOW Urine Clarity CLEAR Urine pH 7.0 Ur Specific [place] 1.010 Urine Protein NEGATIVE Urine Glucose (UA) NEGATIVE Urine Ketones NEGATIVE Urine Occult Blood NEGATIVE Urine Nitrite NEGATIVE Urine Bilirubin NEGATIVE Urine Urobilinogen 0.2 (NORMAL) Ur Leukocyte Esterase TRACE H Urine RBC 0-5 Urine WBC 0-3 Ur Squamous Epith Cells RARE Squamous Urine Bacteria Rare Ur Microscopic Review INDICATED Urine Culture Comments INDICATED Urine HCG, Qual NEGATIVE - Rads (name of study) right hip/pelvis XR Radiology: Final report received (No acute fracture or osseous lesion) PD MEDICAL DECISION MAKING - ED course Complexity details: reviewed results, re-evaluated patient, considered differential, d/w patient ED course: 27-year-old female presents emergency department for evaluation of acute on chronic right hip pain. Symptoms acutely worsened after a ground-level fall about 4 days ago. Did not strike her head did not lose consciousness. She has been taken Aleve without resolution of symptoms then presents here acutely tearful. However she is ambulatory but does continue to hold the lower part of her back and right hip and pain. Screening x-ray was without acute findings. She had reported some mild dysuria but her urine is not consistent with infection will defer antibiotics unless symptoms positive. Initially given Toradol with some improvement in pain but shortly after she began crying again. Therefore she was administered Dilaudid. A prescription for a limited amount of hydrocodone is being sent to the [facility] in [place]. Emergent return precautions were discussed for failure symptoms to improve. I am prescribing a short course of short-acting opioid pain medication for this patient. 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 I have discussed that the opioids are for short term therapy only, and will not be refilled from the ED. Departure - Departure Disposition: 01 Home, Self Care Clinical Impression: Acute right hip pain Condition: Stable Record reviewed to determine appropriate education?: Yes Instructions: ED Low Back Pain Injury Prescriptions: HYDROcod/ACETAM 5/325 [[place] 5/325] 1 - 2 tablet PO Q6H PRN #10 tablet PRN Reason: Pain Comments: You are seen today for pain in your right hip and low back after a fall recently. You also do have a history of chronic hip pain. The x-rays do not show any fractures of the lower spine or hip. I suspect that you have simply exacerbated your pre-existing condition. Your urine does not suggest infection. I would like to defer giving any antibiotics unless the culture is positive. I am sending a prescription for some hydrocodone to the [facility] in [place]. If you find that your symptoms are acutely worsening, you have uncontrolled vomiting, lose control of your bowel or bladder function you should return immediately to the ER for a second evaluation.
[2022-03-21 15:55] LABS: BILIRUBIN,URINE NEGATIVE (NEGATIVE); GLUCOSE, URINE (UA) NEGATIVE (NEGATIVE); KETONES,URINE (UA) NEGATIVE (NEGATIVE); LEUKOCYTE ESTERASE, URINE TRACE (NEGATIVE); NITRITE,URINE NEGATIVE (NEGATIVE); OCCULT BLOOD,URINE NEGATIVE (NEGATIVE); PROTEIN,URINE NEGATIVE (NEGATIVE); UROBILINOGEN,URINE 0.2 (NORMAL) E.U./dL (NORMAL)
[2022-03-21 15:57] LABS: CLARITY,URINE CLEAR (CLEAR)
[2022-03-21 15:58] LABS: HCG UR QUAL NEGATIVE
[2022-03-21 16:03] LABS: BACTERIA,URINE Rare /HPF (None Seen); RBC,URINE 0-5 /HPF (0-5); SQUAMOUS EPITHELIAL CELL,UR RARE Squamous (<= Few); WBC,URINE 0-3 /HPF (0-5)
--- NOTE | 2022-03-21 16:10 | XRAY Report ---
PROCEDURE: Hip w/Pelvis 2-3V RT INDICATIONS: acute on chronic righ thip pain after fall TECHNIQUE: AP pelvis with lateral view(s) of the right hip(s). COMPARISON: None. FINDINGS: Bones: No fractures or dislocations. Pelvic ring appears intact. No suspicious bony lesions. Soft tissues: The visualized bowel gas pattern is normal. No suspicious soft tissue calcifications. IMPRESSION: No acute fracture. No osseous lesion. If symptoms and/or clinical suspicion for patholog y continue, further assessment with repeat plain films, or advanced imaging (e.g., CT, MRI, or bone s can) is recommended for further assessment. Reviewed by: Jessica Driscoll MD on 03/21/2022 4:08 PM PDT Approved by: Jessica Driscoll MD on 03/21/2022 4:08 PM PDT Station ID: [id number]
[2022-03-21] MEDS ORDERED: HYDROmorphone 1 MG/ML CARPUJECT IM STA (16:31)
[2022-03-21 16:54] VITALS: BP 116/84
== END 2022-03-21 17:00 | disposition home or self-care (01) ==
LOC: ED 14:23
DX: M25.551 Pain in right hip (principal); W19.XXXA Unspecified fall, initial encounter
CPT/HCPCS: 73502; 81001; 81025; 87086; 96372; 99284; J1170; 81003

== ENCOUNTER 2022-04-05 14:05 | Emergency (ER) | payer MEDICAID ==
[2022-04-05 14:22] LABS: RAPID STREP SCREEN Negative (Negative)
--- NOTE | 2022-04-05 14:35 | ED Physician Documentation ---
PD HPI HEENT - Stated complaint Stated Complaint: THROAT PX/FEVER - Chief complaint Chief Complaint: Heent - History obtained from History obtained from: Patient - History of Present Illness Timing - onset: Yesterday Timing - duration: Days (2) Timing - details: Abrupt onset, Still present Location: Throat (swelling tonsils with exudate and malodor.) Associated symptoms: Fever. No: Congestion, Rhinorrhea Similar symptoms before: Diagnosis (as teenager she had strep throat often. Feeling similar.) Recently seen: Not recently seen Review of Systems Constitutional: reports: Fever, Myalgias Nose: reports: Rhinorrhea / runny nose. denies: Congestion Throat: reports: Sore throat Cardiac: denies: Chest pain / pressure Respiratory: denies: Dyspnea, Cough, Wheezing GI: denies: Abdominal Pain, Nausea, Vomiting, Diarrhea : reports: Other (sexually active with oral sex as well, most recent about 5-6 days ago. No genital discharge.). 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 : None HEENT: None Psych: Depression, Anxiety, ADD/ADHD Musculoskeletal: None Derm: None - Past Surgical History Past Surgical History: Yes General: Cholecystectomy /DIRECTOR OF [employer] PERFORMANCE ADS: Tubal ligation - Present Medications Home Medications: Ambulatory Orders Medication Instructions Recorded Confirmed HYDROcod/ACETAM 5/325 [[place] 5/325] 1 ea PO Q6H PRN #10 tablet 04/05/22 Ondansetron Odt [Zofran] 4 mg TL Q6H PRN #10 tablet 04/05/22 cephALEXin [Keflex] 500 mg PO TID #20 cap 04/05/22 - Allergies Allergies/Adverse Reactions: Allergies Allergy/AdvReac Type Severity Reaction Status Date / Time ethinyl estradiol Allergy Unknown Verified 04/05/22 14:07 [From Lo Loestrin Fe] ferrous fumarate Allergy Unknown Verified 04/05/22 14:07 [From Lo Loestrin Fe] norethindrone acetate Allergy Unknown Verified 04/05/22 14:07 [From Lo Loestrin Fe] - Social History Does the pt smoke?: No Smoking Status: Never smoker Does the pt drink ETOH?: No Does the pt have substance abuse?: No - Immunizations Immunizations are current?: No Immunizations: Other immun not current - POLST Patient has POLST: No PD ED PE NORMAL - Vitals Vital signs reviewed: Yes - General General: Alert and oriented X 3, No acute distress, Well developed/nourished - HEENT HEENT: No: Pharynx benign (bilateral tonsillar edema/swelling and with esudate on them. No other mucosal sores. ) - Neck Neck: Supple, no meningeal sign, No adenopathy - Cardiac Cardiac: RRR (mild tachycardia), No murmur - Respiratory Respiratory: Clear bilaterally - Abdomen Abdomen: Soft, Non tender - Derm Derm: Normal color, Warm and dry, No rash Results - Vitals Vitals: Vital Signs - 24 hr 04/05/22 04/05/22 14:07 15:36 Temperature 37.1 C Heart Rate 105 H 90 Respiratory 16 16 Rate Blood Pressure 114/73 117/80 O2 Saturation 100 100 Oxygen O2 Source Room air - Labs Labs: Laboratory Tests 04/05/22 14:14 Group A Strep Rapid Negative PD MEDICAL DECISION MAKING - ED course Complexity details: reviewed results (will treat as most likely bacterial pending cultures. ), considered differential (rapid strep is negative but has 4/4 Centor criteria. Also consider potential STD.), d/w patient Departure - Departure Disposition: 01 Home, Self Care Clinical Impression: Acute pharyngitis Qualifiers: Pharyngitis/tonsillitis etiology: unspecified etiology Qualified Code(s): J02.9 - Acute pharyngitis, unspecified Condition: Stable Record reviewed to determine appropriate education?: Yes Instructions: ED Strep Pharyngitis Poss Prescriptions: cephALEXin [Keflex] 500 mg PO TID #20 cap HYDROcod/ACETAM 5/325 [[place] 5/325] 1 ea PO Q6H PRN #10 tablet PRN Reason: Pain Ondansetron Odt [Zofran] 4 mg TL Q6H PRN #10 tablet PRN Reason: Nausea / Vomiting Comments: Your rapid strep test is negative. The throat culture from that will result in a couple of days as well the throat culture for other bacterial causes. He can check the patient portal for your culture results. We will also call you for any positive results. If you have strep growth on the culture, then get the cephalexin antibiotic and take it as prescribed. You were given an intramuscular injection of an antibiotic here that we will start treating it in case it would also cover for other discussed infections. Ibuprofen/Motrin 3 times daily for inflammation and pain. To that add hydrocodone every 6 hours if needed for pain. I transmitted a prescription of your medications to [facility] pharmacy. I am prescribing a short course of narcotic pain medication for you. These are potentially dangerous and addictive medications that should be used carefully. These medications may constipate you. Take an [id number] stool softener such as docusate twice daily with plenty of water while taking these medications. If you go 24 hours without a bowel movement, take [id number] MiraLAX, per package instructions. Do not drink or drive while taking these medications. If you received narcotic or sedating medications while in the emergency department do not drive for 24 hours. Store this medication in a safe, secure place and out of reach of children. It is a violation of federal law to give or sell this medication to another person or to use in a manner other than prescribed. The ED will not refill narcotic prescriptions, including prescriptions lost or stolen. You can dispose of unwanted medications at the [facility]'s office or at several pharmacies such as [facility]. Discharge Date/Time: 04/05/22 15:52
[2022-04-05] MEDS ORDERED: HYDROcod/ACETAM 5/325 MG TABLET PO STA (15:01)
[2022-04-05] MEDS ORDERED: cefTRIAXone 500 MG VIAL IM STA (15:01)
[2022-04-05] MEDS ORDERED: LIDOCAINE 1% 2 ML VIAL MC ONE (15:01)
[2022-04-05] MEDS ORDERED: DEXAMETHASONE 10 MG/ML VIAL PO STA (15:02)
[2022-04-05] MEDS ORDERED: CHERRY SYRUP 10 ML UDC PO ONE (15:02)
[2022-04-05 15:37] VITALS: BP 117/80
--- NOTE | 2022-04-07 11:02 | ED Physician Documentation ---
ED Addendum - Addendum Addendum: 04/07/22 11:01Her throat culture came back growing group C strep. She had been prescribed an antibiotic in case of this eventuality. We will contact her and advise her to go ahead and take the antibiotics. We had performed a GC culture of the throat as well and the results are still pending. She had been treated for that with Rocephin IM in case anyway.
== END 2022-04-05 15:52 | disposition home or self-care (01) ==
LOC: ED 14:05
DX: J02.9 Acute pharyngitis, unspecified (principal)
CPT/HCPCS: 81599; 87070; 87430; 96372; 99283; A9270; 87491; 87591